=== PATIENT | male | born 1960 | race African-American/Black ===

== ENCOUNTER 2017-01-08 12:16 | Emergency (ER) | payer MEDICAID ==
[~2017-01-08] VITALS: Ht 180.3 cm; Wt 79.4 kg
[~2017-01-08 12:16] MED LIST: ALBUTEROL SULF8.5 GM INH; AZITHROMYCIN250 MG ORAL; BACTRIM DS TAB1 EAC1 ORAL; CIPRO500 MG PO; IBUPROFEN600 MG ORAL; NAPROXEN500 M2 ORAL; NORCO 5-325 TA1 EACH ORAL; NORVIR100 MG ORAL; REYATAZ150 MG ORAL; TRUVADA 200 MG1 EAC1 ORAL; ZITHROMAX250 MG ORAL; [UNRECOGNIZED DRUG - OTHER]
[2017-01-08] MEDS ORDERED: triumeq PO (12:44)
[2017-01-08 13:57] LABS: APPEARANCE,URINE CLEAR; KETONES,URINE 1+ (NEGATIVE); LEUKOCYTE ESTERASE ,URINE 1+ (NEGATIVE); NITRITE,URINE NEGATIVE (NEGATIVE); PH,URINE 6.5 (4.5-8.0); PROTEIN,URINE 1+ (NEGATIVE); UROBILINOGEN,URINE 1 MG/DL (0.0-1.0)
[2017-01-08 14:13] LABS: BACTERIA,URINE FEW /HPF; MUCUS,URINE MODERATE /LPF (NONE/OCC); RBC,URINE 0-2 /HPF (0 - 0); SQUAMOUS EPITHELIAL CELL,UR OCCASIONAL /LPF (NONE/OCC)
--- NOTE | 2017-01-08 14:26 | Emergency Room Report ---
History of Present Illness General Chief Complaint: Male Urogenital Problems Source: Patient Present Illness HPI 56 YO Male Pt. presents to the ED c/o Dysuria x 3 days . he denies nausea, vomiting, fevers chills or low back pain. Patient reports recent unprotected intercourse with a newcomer. Patient denies penile lesions or penile discharge. Patient denies swollen or tender lymph nodes in the groin. he denies hesitancy, frequency or hematuria. Denies CP, Palpitations, LOC, AMS, dizziness, Changes in Vision, Sensation, paresthesias, or a sudden severe headache. Allergies: Uncoded Allergies: abacaver (Allergy, Severe, Anaphylaxis, 11/07/13) vakata (Allergy, Severe, rash, 06/29/13) Patient History Past Medical History: see triage record Past Surgical History: none Pertinent Family History: none Immunizations: UTD Reviewed Nursing Documentation: PMH: Agreed, PSxH: Agreed Nursing Documentation-PMH Hx Diabetes: Yes - pre Review of Systems All Other Systems: negative except mentioned in HPI Physical Exam Vital Signs Date Time Temp Pulse Resp B/P Pulse Ox O2 Delivery O2 Flow Rate FiO2 01/08/17 12:36 98.2 62 16 123/70 99 Room Air Sp02 EP Interpretation: reviewed, normal General Appearance: no apparent distress, alert, GCS 15, non-toxic Head: normocephalic, atraumatic Eyes: bilateral eye PERRL, bilateral eye normal inspection ENT: hearing grossly normal, normal pharynx, no angioedema, normal voice Neck: full range of motion, supple/symm/no masses Respiratory: chest non-tender, lungs clear, normal breath sounds, speaking full sentences Cardiovascular #1: regular rate, rhythm, no edema Gastrointestinal: normal bowel sounds, non tender, soft, no guarding, no rebound Rectal: deferred Genitourinary: normal inspection, no CVA tenderness, penis normal, other - no obvious d/c noted. Musculoskeletal: back normal, gait/station normal, normal range of motion, non- tender, no calf tenderness Neurologic: alert, oriented x3, responsive, motor strength/tone normal, sensory intact, speech normal Psychiatric: judgement/insight normal, memory normal, mood/affect normal, no suicidal/homicidal ideation Skin: normal color, no rash, warm/dry, well hydrated, other - no lesions noted Lymphatic: no adenopathy Medical Decision Making PA Attestation Dr. Gomes is my supervising Physician whom patient management has been discussed with. Diagnostic Impression: Primary Impression: Urethritis ER Course Pt. presents to the ED c/o Dysuria x 3 days Ddx considered but are not limited to UTi , STI, G & C, trichomonas, Urethritis. Vital signs: are WNL, pt. is afebrile H&PE are most consistent with urethritis will treat to cover STI. 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 ORDERS: -UA: see labs attached. ED INTERVENTIONS: -250mg Rocephin IM DISCHARGE: At this time pt. is stable for d/c to home. Will provide printed patient care instructions, and any necessary prescriptions. Care plan and follow up instructions have been discussed with the patient prior to discharge. Labs Test 01/08/17 13:34 Urine Color Yellow Urine Appearance Clear Urine pH 6.5 (4.5-8.0) Urine Specific [place] 1.015 (1.005-1.035) Urine Protein 1+ (NEGATIVE) Urine Glucose (UA) Negative (NEGATIVE) Urine Ketones 1+ (NEGATIVE) Urine Occult Blood Negative (NEGATIVE) Urine Nitrite Negative (NEGATIVE) Urine Bilirubin Negative (NEGATIVE) Urine Urobilinogen 1 MG/DL (0.0-1.0) Urine Leukocyte Esterase 1+ (NEGATIVE) Urine RBC 0-2 /HPF (0 - 0) Urine WBC 2-4 /HPF (0 - 0) Urine Squamous Epithelial Cells Occasional /LPF Urine Bacteria Few /HPF (NONE) Urine Mucus Moderate /LPF (NONE/OCC) Last Vital Signs Date Time Temp Pulse Resp B/P Pulse Ox O2 Delivery O2 Flow Rate FiO2 01/08/17 12:36 98.2 62 16 123/70 99 Room Air Disposition: HOME, SELF-CARE Condition: Stable Scripts Phenazopyridine Hcl* (PYRIDIUM*) 200 Mg Tablet 200 MG ORAL THREE TIMES A DAY, #14 TAB 0 Refills Prov: Suzanne Harris P.A. 01/08/17 Doxycycline Hyclate* (VIBRAMYCIN*) 100 Mg Capsule 100 MG ORAL EVERY 12 HOURS for 7 Days, #14 CAP 0 Refills Prov: Suzanne Harris P.A. 01/08/17 Referrals: NON PHYSICIAN (PCP) Patient Instructions: Urethritis, Adult Additional Instructions: Take medications as directed. Follow up with PCP in 3-5 days Return sooner to ED if new symptoms occur, or current symptoms become worse. Suzanne Harris Jan 08, 2017 14:26
[2017-01-08] MEDS ORDERED: PHENAZOPYRIDIN200 MG ORAL (14:27)
[2017-01-08] MEDS ORDERED: VIBRAMYCIN100 MG ORAL (14:27)
[2017-01-08] MEDS ORDERED: Lidocaine 1% Plain 30 ml INJ ONE (14:50)
[2017-01-08] MEDS ORDERED: Lidocaine 1% MPF 10mg/ml 5ml ONE (14:51)
[2017-01-08 15:07] VITALS: BP 113/75
== END 2017-01-08 15:07 | disposition home or self-care (01) ==
LOC: EMR 13:00
DX: N34.2 Other urethritis (principal); R73.03 Prediabetes
CPT/HCPCS: 81003; 96372; 99284; J0696; J2001

== ENCOUNTER 2017-02-23 00:36 | Emergency (ER) | payer MEDICAID ==
[~2017-02-23] VITALS: Ht 180.3 cm; Wt 79.4 kg
[~2017-02-23 00:36] MED LIST changes: +PHENAZOPYRIDIN200 MG ORAL; +VIBRAMYCIN100 MG ORAL; +triumeq PO
[2017-02-23 00:50] VITALS: BP 121/73
[2017-02-23] MEDS ORDERED: Azithromycin 250mg tab ORAL ONE (01:00)
[2017-02-23] MEDS ORDERED: Lidocaine 1% MPF 10mg/ml 5ml ONE (01:01)
--- NOTE | 2017-02-23 01:19 | Emergency Room Report ---
History of Present Illness General Chief Complaint: Sore Throat Source: Patient Present Illness HPI Is a 56-year-old male with a history of HIV. He presents with chief complaint of sore throat occurred 2 days ago. This occurred after having unprotected oral sex. Denies any discharge. Denies any fever chills denies any other complaint. Worse with swallowing. Allergies: Uncoded Allergies: abacaver (Allergy, Severe, Anaphylaxis, 11/07/13) vakata (Allergy, Severe, rash, 06/29/13) Patient History Past Medical History: see triage record, old chart reviewed, HIV Past Surgical History: none Pertinent Family History: none Social History: Denies: smoking Immunizations: other Reviewed Nursing Documentation: PMH: Agreed, PSxH: Agreed Nursing Documentation-PMH Hx Diabetes: Yes - pre Review of Systems Eye: Denies: blurred vision, eye pain ENT: Denies: ear pain, nose congestion, throat swelling Respiratory: Denies: cough, shortness of breath Cardiovascular: Denies: chest pain, palpitations Gastrointestinal: Denies: abdominal pain, diarrhea, nausea, vomiting Musculoskeletal: Denies: back pain, joint pain Skin: Denies: rash Neurological: Denies: headache, numbness Endocrine: Denies: increased thirst, increased urine Hematologic/Lymphatic: Denies: easy bruising All Other Systems: negative except mentioned in HPI Physical Exam Vital Signs Date Time Temp Pulse Resp B/P Pulse Ox O2 Delivery O2 Flow Rate FiO2 02/23/17 00:47 98.1 66 18 121/73 97 Room Air vitals normal Sp02 EP Interpretation: reviewed, normal General Appearance: well appearing, no apparent distress, alert Head: normocephalic, atraumatic Eyes: bilateral eye EOMI, bilateral eye PERRL ENT: hearing grossly normal, normal pharynx Neck: full range of motion, supple, no meningismus Respiratory: chest non-tender, lungs clear, normal breath sounds Cardiovascular #1: regular rate, rhythm, no murmur Gastrointestinal: normal bowel sounds, non tender, no mass, no organomegaly, no bruit, non-distended Musculoskeletal: back normal, gait/station normal, normal range of motion Psychiatric: mood/affect normal Skin: warm/dry Medical Decision Making Diagnostic Impression: Primary Impression: Pharyngitis, acute Qualified Codes: J02.9 - Acute pharyngitis, unspecified ER Course Patient with pharyngitis. Most likely viral. Could be Chlamydia or gonorrhea. He looks well. We'll discharge home. No evidence of peritonsillar abscess or retropharyngeal abscess. Last Vital Signs Date Time Temp Pulse Resp B/P Pulse Ox O2 Delivery O2 Flow Rate FiO2 02/23/17 00:47 98.1 66 18 121/73 97 Room Air Status: improved Disposition: HOME, SELF-CARE Condition: Stable Patient Instructions: Sore Throat Additional Instructions: Followup with your Dr. in 7 days. Return if symptom worsen. MELA PAL M.D. Feb 23, 2017 01:19
[2017-02-23 01:28] VITALS: BP 121/73
== END 2017-02-23 01:28 | disposition home or self-care (01) ==
LOC: EMR 01:15
DX: J02.9 Acute pharyngitis, unspecified (principal)
CPT/HCPCS: 96372; 99283; J0696; Q0144

== ENCOUNTER 2017-04-02 09:57 | Emergency (ER) | payer MEDICAID ==
[~2017-04-02] VITALS: Ht 182.9 cm; Wt 83.9 kg
[2017-04-02 10:09] VITALS: BP 130/81
[2017-04-02 10:51] LABS: APPEARANCE,URINE CLEAR; KETONES,URINE NEGATIVE (NEGATIVE); LEUKOCYTE ESTERASE ,URINE 1+ (NEGATIVE); NITRITE,URINE NEGATIVE (NEGATIVE); PH,URINE 5 (4.5-8.0); PROTEIN,URINE NEGATIVE (NEGATIVE); UROBILINOGEN,URINE NORMAL MG/DL (0.0-1.0)
[2017-04-02 10:55] LABS: BACTERIA,URINE FEW /HPF; RBC,URINE 0-2 /HPF (0 - 0); SQUAMOUS EPITHELIAL CELL,UR OCCASIONAL /LPF (NONE/OCC)
[2017-04-02 11:01] LABS: MUCUS,URINE FEW /LPF (NONE/OCC)
[2017-04-02] MEDS ORDERED: VIBRAMYCIN100 MG ORAL (11:06)
--- NOTE | 2017-04-02 11:06 | Emergency Room Report ---
History of Present Illness General Chief Complaint: Male Urogenital Problems Source: Patient Present Illness HPI Patient presents with itching discharge which is clear after having unprotected sex. No fevers. No lymphadenopathy. No dysuria or hematuria. Reports pain to RN 7/10, but denies pain to me. Patient is HIV +. On antivirals. No NVD, sore throat, cough, chest pain, anxiety, rashes. Allergies: Coded Allergies: ABACAVIR (Verified Allergy, Severe, Anaphylaxis, 04/02/17) Patient History Past Medical History: see triage record, HIV Social History: Denies: smoking Social History Narrative at home Reviewed Nursing Documentation: PMH: Agreed, PSxH: Agreed Nursing Documentation-PMH Past Medical History: No History, Except For Hx Diabetes: Yes - pre Review of Systems All Other Systems: negative except mentioned in HPI Physical Exam Vital Signs Date Time Temp Pulse Resp B/P Pulse Ox O2 Delivery O2 Flow Rate FiO2 04/02/17 10:01 97.9 69 18 130/81 98 Room Air Sp02 EP Interpretation: reviewed, normal General Appearance: well appearing, no apparent distress, GCS 15 Head: normocephalic, atraumatic Eyes: bilateral eye PERRL, bilateral eye normal inspection ENT: hearing grossly normal, normal voice, moist mucus membranes Neck: full range of motion, supple Respiratory: no respiratory distress, speaking full sentences Genitourinary: normal inspection, penis normal, scrotum normal, other - circumcized, no d/c Musculoskeletal: no calf tenderness Neurologic: alert, normal gait Psychiatric: mood/affect normal Skin: no rash Lymphatic: normal inspection Medical Decision Making Diagnostic Impression: Primary Impression: Dysuria Additional Impressions: Possible exposure to STD HIV (human immunodeficiency virus infection) ER Course Patient with d/c after unprotected sex. Ddx: GC, chlamydia, other STD. Will check UA and send STD labs. Will treat with rocephin and doxy. Patient stable for outpatient observation and treatment. Advised patient of need for protection, not only for self but for partners. Laboratory Tests Test 04/02/17 10:07 Urine Color Yellow Urine Appearance Clear Urine pH 5 (4.5-8.0) Urine Specific [place] 1.020 (1.005-1.035) Urine Protein Negative (NEGATIVE) Urine Glucose (UA) Negative (NEGATIVE) Urine Ketones Negative (NEGATIVE) Urine Occult Blood Negative (NEGATIVE) Urine Nitrite Negative (NEGATIVE) Urine Bilirubin Negative (NEGATIVE) Urine Urobilinogen Normal MG/DL (0.0-1.0) Urine Leukocyte Esterase 1+ (NEGATIVE) H Urine RBC 0-2 /HPF (0 - 0) H Urine WBC 2-4 /HPF (0 - 0) Urine Squamous Epithelial Cells Occasional /LPF Urine Transitional Epithelial Cells /LPF (NONE) Urine Bacteria Few /HPF (NONE) Urine Mucus Few /LPF (NONE/OCC) H Chlamydia trachomatis RNA Pending Neisseria gonorrhoeae RNA Pending Last Vital Signs Date Time Temp Pulse Resp B/P Pulse Ox O2 Delivery O2 Flow Rate FiO2 04/02/17 11:11 97.9 69 18 130/81 98 Room Air Status: improved Disposition: HOME, SELF-CARE Condition: Improved Scripts Doxycycline Hyclate* (VIBRAMYCIN*) 100 Mg Capsule 100 MG ORAL EVERY 12 HOURS, #14 CAP 0 Refills Prov: Tomas Serna M.D. 04/02/17 Referrals: NOT CHOSEN MONALISA/,REFERRING (PCP) Tomas Serna M.D. April 02, 2017 11:06
[2017-04-02 11:11] VITALS: BP 130/81
== END 2017-04-02 11:13 | disposition home or self-care (01) ==
LOC: EMR 10:25
DX: R30.0 Dysuria (principal); Z20.2 Contact with and (suspected) exposure to infections with a predominantly sexual mode of transmission; Z21 Asymptomatic human immunodeficiency virus [HIV] infection status; R73.03 Prediabetes
CPT/HCPCS: 81003; 87491; 87590; 96372; 99283; J0696

== ENCOUNTER 2017-05-20 11:52 | Emergency (ER) | payer MEDICAID ==
[~2017-05-20] VITALS: Ht 180.3 cm; Wt 81.6 kg
--- NOTE | 2017-05-20 12:28 | Emergency Room Report ---
History of Present Illness General Chief Complaint: Flu Like Symptoms Source: Patient Present Illness HPI 56 YO Male presents to the ED c/o penile itching intermittently x 2 days s/p unprotected intercourse with new partner. patient also reports 4/10 in severity sore throat described as irritated/scratching sensation denies fevers, chills, joint pain, nausea, vomiting, abdominal pain, rashes, swollen palpable lymph nodes. denies dysuria, penile d/c, hematuria or penile lesions. Patient denies nasal congestion. Reports intermittent sneezing. Pt reports ill contact with URI symptoms yesterday evening. Denies CP, Palpitations, LOC, AMS, dizziness, Changes in Vision, Sensation, paresthesias, or a sudden severe headache. Allergies: Coded Allergies: ABACAVIR (Verified Allergy, Severe, Anaphylaxis, 04/02/17) Patient History Past Medical History: see triage record Past Surgical History: none Pertinent Family History: none Immunizations: UTD Reviewed Nursing Documentation: PMH: Agreed, PSxH: Agreed Nursing Documentation-PMH Hx Diabetes: Yes - pre Review of Systems All Other Systems: negative except mentioned in HPI Physical Exam Vital Signs Date Time Temp Pulse Resp B/P Pulse Ox O2 Delivery O2 Flow Rate FiO2 05/20/17 11:59 97.9 64 16 112/70 98 Room Air Sp02 EP Interpretation: reviewed, normal General Appearance: no apparent distress, alert, GCS 15, non-toxic Head: normocephalic, atraumatic Eyes: bilateral eye PERRL, bilateral eye normal inspection ENT: hearing grossly normal, normal pharynx, no angioedema, normal voice, TMs + canals normal, uvula midline, moist mucus membranes, other - no appreciable erythema of the throat noted, no tonsillar swelling. Neck: full range of motion, supple/symm/no masses Respiratory: lungs clear, normal breath sounds, speaking full sentences Cardiovascular #1: regular rate, rhythm, no edema Genitourinary: normal inspection, no CVA tenderness, other - no lesions, rashes or d/c noted, no LAD, -- Kalani RN was chapperone Musculoskeletal: back normal, gait/station normal, normal range of motion, non- tender Neurologic: alert, oriented x3, responsive, motor strength/tone normal, sensory intact, speech normal Psychiatric: judgement/insight normal, memory normal, mood/affect normal Reflexes: 4+ bicep (R), 4+ bicep (L), 4+ tricep (R), 4+ tricep (L), 4+ knee (R) , 4+ knee (L) Skin: normal color, no rash, warm/dry, well hydrated Lymphatic: no adenopathy Medical Decision Making PA Attestation Dr. Serna is my supervising Physician whom patient management has been discussed with. Diagnostic Impression: Primary Impression: Urethritis Additional Impressions: Possible exposure to STD Sore throat ER Course 56 YO Male presents to the ED c/o penile itching intermittently x 2 days s/p unprotected intercourse with new partner. patient also reports 4/10 in severity sore throat described as irritated/scratching sensation denies fevers, chills, joint pain, nausea, vomiting, abdominal pain, rashes, swollen palpable lymph nodes. denies dysuria, penile d/c, hematuria or penile lesions. Patient denies nasal congestion. Reports intermittent sneezing. Pt reports ill contact with URI symptoms yesterday evening. Ddx considered but are not limited to UTi , STI, G & C, trichomonas, Urethritis , LGV, herpes Vital signs: are WNL, pt. is afebrile H&PE are most consistent with Urethritis will treat prophylactically while awaiting urine G & C culture results. ORDERS: -G & C Urine: Pending ED INTERVENTIONS: -250mg Rocephin IM DISCHARGE: At this time pt. is stable for d/c to home. Will provide printed patient care instructions, and any necessary prescriptions. Care plan and follow up instructions have been discussed with the patient prior to discharge. Labs Test 05/20/17 12:10 Last Vital Signs Date Time Temp Pulse Resp B/P Pulse Ox O2 Delivery O2 Flow Rate FiO2 05/20/17 11:59 97.9 64 16 112/70 98 Room Air Disposition: HOME, SELF-CARE Condition: Stable Scripts Doxycycline Hyclate* (VIBRAMYCIN*) 100 Mg Capsule 100 MG ORAL EVERY 12 HOURS for 7 Days, #14 CAP 0 Refills Prov: Suzanne Harris P.A. 05/20/17 Cetirizine Hcl* (ZYRTEC*) 10 Mg Tablet 10 MG ORAL DAILY for 10 Days, #30 TAB 0 Refills Prov: Suzanne Harris P.A. 05/20/17 Patient Instructions: Urethritis, Adult Additional Instructions: Take medications as directed. Follow up with PCP in 3-5 days Return sooner to ED if new symptoms occur, or current symptoms become worse. - Please note that this Emergency Department Report was dictated using [employer] driver technology software, occasionally this can lead to erroneous entry secondary to interpretation by the dictation equipment. Suzanne Harris May 20, 2017 12:28
[2017-05-20] MEDS ORDERED: ZYRTEC10 MG ORAL (12:29)
[2017-05-20] MEDS ORDERED: VIBRAMYCIN100 MG ORAL (12:29)
[2017-05-20 12:40] VITALS: BP 112/70
[2017-05-20 13:04] VITALS: BP 112/70
== END 2017-05-20 13:07 | disposition home or self-care (01) ==
LOC: EMR 12:45
DX: N34.2 Other urethritis (principal); J02.9 Acute pharyngitis, unspecified
CPT/HCPCS: 87491; 87590; 96372; 99284; J0696

== ENCOUNTER 2017-11-13 18:46 | Emergency (ER) | payer MEDICAID ==
[~2017-11-13] VITALS: Ht 180.3 cm; Wt 81.6 kg
[~2017-11-13 18:46] MED LIST changes: +ZYRTEC10 MG ORAL
[2017-11-13] MEDS ORDERED: Lidocaine 1% MPF 10mg/ml 5ml INJ ONE (19:15)
[2017-11-13] MEDS ORDERED: Azithromycin 250mg tab ORAL ONE (19:15)
--- NOTE | 2017-11-13 19:21 | Emergency Room Report ---
History of Present Illness General Chief Complaint: Male Urogenital Problems Source: Patient, Medical Record Present Illness HPI 57 y/o male c/o dysuria since this morning. Patient states that he had sex with a new sexual partner and a few days later started having burning sensation in his urethra. States that her pain is constant and is worse when he urinates. Patient states that there is no modifying factors outside of the urination. Patient states that they are taking medicine for his symptoms. Patient denies any penile discharge, scrotal pain, abdominal pain, pelvic pressure, flank pain, hematuria, fever, rashes or flu-like sxs. Allergies: Coded Allergies: ABACAVIR (Verified Allergy, Severe, Anaphylaxis, 04/02/17) Patient History Past Medical History: see triage record Past Surgical History: none Pertinent Family History: none Reviewed Nursing Documentation: PMH: Agreed, PSxH: Agreed Nursing Documentation-PMH Past Medical History: No History, Except For Hx Diabetes: Yes - pre Review of Systems All Other Systems: negative except mentioned in HPI Physical Exam Vital Signs Date Time Temp Pulse Resp B/P (MAP) Pulse Ox O2 Delivery O2 Flow Rate FiO2 11/13/17 18:56 97.9 73 18 132/81 100 Room Air Sp02 EP Interpretation: reviewed, normal General Appearance: no apparent distress, alert, GCS 15, non-toxic Head: normocephalic, atraumatic Eyes: bilateral eye normal inspection, bilateral eye PERRL ENT: hearing grossly normal, normal pharynx, no angioedema, normal voice Respiratory: chest non-tender, lungs clear, normal breath sounds, speaking full sentences Cardiovascular #1: regular rate, rhythm, no edema Gastrointestinal: non tender, soft Genitourinary: normal inspection, no CVA tenderness, penis normal, scrotum normal Musculoskeletal: digits/nails normal, gait/station normal Neurologic: alert, oriented x3, responsive, motor strength/tone normal, sensory intact, speech normal Skin: normal color, no rash, warm/dry, well hydrated Lymphatic: no adenopathy Medical Decision Making PA Attestation Dr. Tatum my supervising physician with whom patient management has been discussed with. Diagnostic Impression: Primary Impression: Urethritis Additional Impression: Urinary tract infection Qualified Codes: N39.0 - Urinary tract infection, site not specified ER Course Pt. presents to the ED c/o burning urinary pain Ddx considered but are not limited to UTI, Balanitis, STI, Kidney Stone, Pyelonephritis Vital signs: are WNL, pt. is afebrile H&PE are most consistent with Urethritis / UTI ORDERS: UA w/. reflex ED INTERVENTIONS: 250 mg rocephin, 1g azithromycin. DISCHARGE: At this time pt. is stable for d/c to home. Will provide printed patient care instructions, and any necessary prescriptions. Care plan and follow up instructions have been discussed with the patient prior to discharge. Laboratory Tests Test 11/13/17 19:00 Urine Color Yellow Urine Appearance Clear Urine pH 6.5 (4.5-8.0) Urine Specific [place] 1.010 (1.005-1.035) Urine Protein Negative (NEGATIVE) Urine Glucose (UA) 4+ (NEGATIVE) H Urine Ketones Negative (NEGATIVE) Urine Occult Blood Negative (NEGATIVE) Urine Nitrite Negative (NEGATIVE) Urine Bilirubin Negative (NEGATIVE) Urine Urobilinogen Normal MG/DL (0.0-1.0) Urine Leukocyte Esterase 1+ (NEGATIVE) H Urine RBC 0-2 /HPF (0 - 0) H Urine WBC 2-4 /HPF (0 - 0) Urine Squamous Epithelial Cells None /LPF (NONE/OCC) Urine Bacteria Few /HPF (NONE) Last Vital Signs Date Time Temp Pulse Resp B/P (MAP) Pulse Ox O2 Delivery O2 Flow Rate FiO2 11/13/17 18:56 97.9 73 18 132/81 100 Room Air Disposition: HOME, SELF-CARE Condition: Stable Scripts Cephalexin* (KEFLEX*) 500 Mg Capsule 500 MG ORAL EVERY 12 HOURS, #14 CAP 0 Refills Prov: ANGELES FLAHERTY P.A. 11/13/17 Referrals: NON PHYSICIAN (PCP) Patient Instructions: Urethritis, Adult Additional Instructions: Take medication as directed. Patient advised to follow up with community clinic for formal STD screening. In general, watch out for any genital itching, burning , sores, or discharge. But be aware that many STIs do not cause any symptoms. The best way to know for sure if you have an STI is to be screened. If you have an STI, you will need treatment. The right treatment will depend on the type of STI you have. If you do have an infection, you might need to tell the people you could have infected. There is no surefire way to prevent all STIs, but there are things you can do to reduce your chances of catching one. The most important thing you can do is to wear a condom every time you have sex. Both male and female condoms can protect against STIs. But be aware that male condoms made out of "natural materials," such as sheep intestine, do NOT protect against STIs. If you are 26 years old or younger, you can get a vaccine to protect against HPV, the virus that causes genital warts. If you do not have hepatitis A or B and have not already gotten the vaccine for hepatitis A or B, you can get those vaccines, too. If your partner has herpes, he or she can reduce the chances of infecting you by taking a medicine called valacyclovir. If you are at very high risk of catching HIV, you might be able to take a pill every day to reduce the chances that you will get HIV. This is an option only for very few at-risk people. ANGELES FLAHERTY Nov 13, 2017 19:21
[2017-11-13 19:24] LABS: APPEARANCE,URINE CLEAR; KETONES,URINE NEGATIVE (NEGATIVE); LEUKOCYTE ESTERASE ,URINE 1+ (NEGATIVE); NITRITE,URINE NEGATIVE (NEGATIVE); PH,URINE 6.5 (4.5-8.0); PROTEIN,URINE NEGATIVE (NEGATIVE); UROBILINOGEN,URINE NORMAL MG/DL (0.0-1.0)
[2017-11-13 19:33] VITALS: BP 132/81
[2017-11-13 19:36] LABS: BACTERIA,URINE FEW /HPF; RBC,URINE 0-2 /HPF (0 - 0)
[2017-11-13] MEDS ORDERED: CEPHALEXIN500 MG ORAL (19:41)
== END 2017-11-13 19:33 | disposition home or self-care (01) ==
LOC: EMR 19:13
DX: N34.2 Other urethritis (principal); N39.0 Urinary tract infection, site not specified
CPT/HCPCS: 81003; 96372; 99284; J0696; Q0144

== ENCOUNTER 2018-01-22 19:25 | Emergency (ER) | payer MEDICAID ==
[~2018-01-22] VITALS: Ht 180.3 cm; Wt 81.6 kg
[~2018-01-22 19:25] MED LIST changes: +CEPHALEXIN500 MG ORAL
[2018-01-22 19:45] VITALS: BP 121/75
[2018-01-22] MEDS ORDERED: Lidocaine 1% MPF 10mg/ml 5ml INJ ONE (20:00)
[2018-01-22 20:18] LABS: APPEARANCE,URINE CLEAR; BILIRUBIN, URINE NEGATIVE (NEGATIVE); GLUCOSE, URINE (UA) 3+ (NEGATIVE); KETONES,URINE NEGATIVE (NEGATIVE); LEUKOCYTE ESTERASE ,URINE NEGATIVE (NEGATIVE); NITRITE,URINE NEGATIVE (NEGATIVE); PH,URINE 6 (4.5-8.0); UROBILINOGEN,URINE 4 MG/DL (0.0-1.0)
[2018-01-22 20:19] LABS: COLOR,URINE YELLOW
[2018-01-22 20:20] LABS: PROTEIN,URINE NEGATIVE (NEGATIVE)
--- NOTE | 2018-01-22 20:43 | Emergency Room Report ---
History of Present Illness General Chief Complaint: Male Urogenital Problems Source: Patient Present Illness HPI Patient presents with irritation at tip of penis. 2 days. Not painful. No discharge. No dysuria. Sig other with other contacts. Variable use of condom. Has been treated for urethritis in the past. Denies fevers, lymphadenopathy, joint pain, eye d/c, change in bowels, chest pain, abdominal pain, testicular pain, rectal pain. Has diabetes and not taking metformin for some time. Allergies: Coded Allergies: ABACAVIR (Verified Allergy, Severe, Anaphylaxis, 04/02/17) Patient History Past Medical History: see triage record Social History: Denies: smoking Social History Narrative in relationship Reviewed Nursing Documentation: PMH: Agreed, PSxH: Agreed Nursing Documentation-PMH Hx Diabetes: Yes - pre Review of Systems All Other Systems: negative except mentioned in HPI Physical Exam Vital Signs Date Time Temp Pulse Resp B/P (MAP) Pulse Ox O2 Delivery O2 Flow Rate FiO2 01/22/18 19:34 97.3 72 18 121/75 99 Room Air 97.3 General Appearance: well appearing, no apparent distress Head: normocephalic, atraumatic Eyes: bilateral eye normal inspection, bilateral eye PERRL ENT: hearing grossly normal, normal voice, moist mucus membranes Neck: full range of motion, supple Respiratory: no respiratory distress, speaking full sentences Gastrointestinal: normal inspection, scaphoid Genitourinary: normal inspection, other - circumcised, top of urethra area concerned, normal, no d/c Musculoskeletal: back normal, digits/nails normal, non-tender Neurologic: alert, normal gait, grossly normal Psychiatric: mood/affect normal Skin: no rash Lymphatic: no adenopathy Medical Decision Making Diagnostic Impression: Primary Impression: Dysuria Additional Impression: Hyperglycemia ER Course Patient with irritation tip of penis and question of possible STD encounter. Eval with UA and send out for Chlamydia and GC. Exam fairly unremarkable. Treatment with Rocephin and Doxy. Told to use protection and follow up with his MD. Patient stable for outpatient observation and treatment. Laboratory Tests Test 01/22/18 19:45 Urine Color Yellow Urine Appearance Clear Urine pH 6 (4.5-8.0) Urine Specific [place] 1.020 (1.005-1.035) Urine Protein Negative (NEGATIVE) Urine Glucose (UA) 3+ (NEGATIVE) H Urine Ketones Negative (NEGATIVE) Urine Occult Blood Negative (NEGATIVE) Urine Nitrite Negative (NEGATIVE) Urine Bilirubin Negative (NEGATIVE) Urine Urobilinogen 4 MG/DL (0.0-1.0) H Urine Leukocyte Esterase Negative (NEGATIVE) Chlamydia trachomatis RNA Pending Neisseria gonorrhoeae RNA Pending Last Vital Signs Date Time Temp Pulse Resp B/P (MAP) Pulse Ox O2 Delivery O2 Flow Rate FiO2 01/22/18 20:55 97.3 18 121/75 99 Room Air 97.3 01/22/18 19:34 72 Status: improved Disposition: HOME, SELF-CARE Condition: Improved Scripts Doxycycline Hyclate* (VIBRAMYCIN*) 100 Mg Capsule 100 MG ORAL EVERY 12 HOURS, #14 CAP 0 Refills Prov: Tomas Serna M.D. 01/22/18 Referrals: NON PHYSICIAN (PCP) Tomas Serna M.D. Jan 22, 2018 20:43
[2018-01-22] MEDS ORDERED: VIBRAMYCIN100 MG ORAL (20:45)
[2018-01-22 20:55] VITALS: BP 121/75
== END 2018-01-22 20:55 | disposition home or self-care (01) ==
LOC: EMR 19:59
DX: R30.0 Dysuria (principal); E11.65 Type 2 diabetes mellitus with hyperglycemia; N48.89 Other specified disorders of penis
CPT/HCPCS: 81003; 82962; 87491; 87590; 96372; 99284; J0696

== ENCOUNTER 2018-02-22 13:09 | Emergency (ER) | payer MEDICAID ==
[~2018-02-22] VITALS: Ht 182.9 cm; Wt 81.6 kg
[2018-02-22 13:39] VITALS: BP 114/64
[2018-02-22] MEDS ORDERED: Metoclopramide 10mg/2ml Inj IVP ONE (14:00)
[2018-02-22] MEDS ORDERED: Ketorolac 30mg Inj IV ONE (14:00)
[2018-02-22] MEDS ORDERED: DiphenhydrAMINE 50mg/ml Inj IVP ONE (14:00)
--- NOTE | 2018-02-22 14:06 | Emergency Room Report ---
History of Present Illness General Chief Complaint: Back Pain-No Injury Source: Patient Present Illness HPI The patient presents with right-sided throbbing headache that started yesterday. Took some ibuprofen and pain was a little better last night but then came back. Feels nausea but no has no vomiting. He states the pain is 8-9 /10 and constant now. He denies any weakness or tingling. He also has some flank pain and has had some cramps in his calves yesterday. The patient is had headaches like this before and terms them "migraine". 6 or 7 years ago he had a concussion and has had occasional headaches with a postconcussion syndrome. He states a CT was done at that time and was "normal". The patient denies any fevers, change in vision although he notes that his eyes at different to him. No chest pain, cough, shortness of breath, palpitations, dysuria. The patient's been seen here before for urethritis, but denies these complaints at this time. He is HIV positive and is on antivirals and states CD4 and viral load have been constant (though is questioning if this is so now). "Prediabetic" Allergies: Coded Allergies: ABACAVIR (Verified Allergy, Severe, Anaphylaxis, 04/02/17) Patient History Past Medical History: see triage record, HIV Social History: Denies: smoking - Prior smoker, alcohol use, drug use Social History Narrative Lives with girlfriend. He drove himself here Reviewed Nursing Documentation: PMH: Agreed; PSxH: Agreed Nursing Documentation-PMH Past Medical History: No History, Except For Hx Diabetes: Yes - Pre Diabetic Review of Systems All Other Systems: negative except mentioned in HPI Physical Exam Vital Signs Date Time Temp Pulse Resp B/P (MAP) Pulse Ox O2 Delivery O2 Flow Rate FiO2 02/22/18 13:22 98.1 72 22 114/64 98 Room Air 98.1 Sp02 EP Interpretation: reviewed, normal General Appearance: well appearing, no apparent distress, GCS 15 Head: normocephalic Eyes: bilateral eye PERRL, bilateral eye EOMI - Slight disconjugate gaze with medial rectus weakness, bilateral eye Scleral Injection ENT: moist mucus membranes Neck: supple, no meningismus, no bony tend, tender - minimally laterally Respiratory: lungs clear, normal breath sounds Cardiovascular #1: regular rate, rhythm Cardiovascular #2: 2+ radial (R) Gastrointestinal: normal inspection, normal bowel sounds, non tender, no mass, non-distended Genitourinary: no CVA tenderness Musculoskeletal: gait/station normal, normal range of motion, tender - lumbar muscles Neurologic: alert, oriented x3, dry wall applicator III-XII nml as tested, motor strength/tone normal, DTRs symmetric, sensory intact, cerebellar normal, normal gait, speech normal Psychiatric: mood/affect normal Skin: normal inspection, warm/dry Medical Decision Making Diagnostic Impression: Primary Impression: Headache Qualified Codes: R51 - Headache Additional Impressions: Back pain Qualified Codes: M54.5 - Low back pain Muscle cramps ER Course The patient presents with right-sided throbbing headache since yesterday. This is not the worst headache of his life. He turns it a migraine. He has had this type of headache after having a concussion 6 or 7 years ago and had a normal CAT scan done at that time. Exam is nonfocal. The patient will be treated with IV hydration, Reglan, Benadryl and Toradol. In addition to that the patient will have CBC and CMP done and a urinalysis as he is complaining about flank pain. We'll be checking electrolytes because of the cramping in his legs. Labs normal (slightly elevated glucose and bicarb). While walking in gross he stated he felt better. Then reported to RN that he still had SINGH, but less pain. Discussed treatment plan. Patient stable for outpatient observation and treatment. Laboratory Tests Test 02/22/18 14:15 White Blood Count 5.9 K/UL (4.8-10.8) Red Blood Count 5.19 M/UL (4.70-6.10) Hemoglobin 15.6 G/DL (14.2-18.0) Hematocrit 46.3 % (42.0-52.0) Mean Corpuscular Volume 89 FL (80-99) Mean Corpuscular Hemoglobin 30.0 PG (27.0-31.0) Mean Corpuscular Hemoglobin Concent 33.6 G/DL (32.0-36.0) Red Cell Distribution Width 11.9 % (11.6-14.8) Platelet Count 241 K/UL (150-450) Mean Platelet Volume 7.9 FL (6.5-10.1) Neutrophils (%) (Auto) 62.3 % (45.0-75.0) Lymphocytes (%) (Auto) 28.0 % (20.0-45.0) Monocytes (%) (Auto) 7.2 % (1.0-10.0) Eosinophils (%) (Auto) 1.8 % (0.0-3.0) Basophils (%) (Auto) 0.7 % (0.0-2.0) Prothrombin Time 10.2 SEC (9.30-11.50) Prothrombin Time INR 1.0 (0.9-1.1) PTT 27 SEC (23-33) Urine Color Yellow Urine Appearance Clear Urine pH 6.5 (4.5-8.0) Urine Specific [place] 1.010 (1.005-1.035) Urine Protein 1+ (NEGATIVE) H Urine Glucose (UA) Negative (NEGATIVE) Urine Ketones Negative (NEGATIVE) Urine Occult Blood Negative (NEGATIVE) Urine Nitrite Negative (NEGATIVE) Urine Bilirubin Negative (NEGATIVE) Urine Urobilinogen Normal MG/DL (0.0-1.0) Urine Leukocyte Esterase 1+ (NEGATIVE) H Urine RBC 0 /HPF (0 - 0) Urine WBC 2-4 /HPF (0 - 0) Urine Squamous Epithelial Cells Occasional /LPF Urine Bacteria Occasional /HPF (NONE) Sodium Level 139 MMOL/L (136-145) Potassium Level 4.4 MMOL/L (3.5-5.1) Chloride Level 103 MMOL/L (98-107) Carbon Dioxide Level 33 MMOL/L (21-32) H Anion Gap 3 mmol/L (5-15) L Blood Urea Nitrogen 8 mg/dL (7-18) Creatinine 1.0 MG/DL (0.55-1.30) Estimate Glomerular Filtration Rate > 60 mL/min (>60) Glucose Level 155 MG/DL (74-106) H Calcium Level 9.1 MG/DL (8.5-10.1) Total Bilirubin 0.6 MG/DL (0.2-1.0) Aspartate Amino Transferase (AST) 23 U/L (15-37) Alanine Aminotransferase (ALT) 40 U/L (12-78) Alkaline Phosphatase 99 U/L (46-116) Total Creatine Kinase 225 U/L (26-308) Troponin I 0.000 ng/mL (0.000-0.056) Total Protein 9.9 G/DL (6.4-8.2) H Albumin 3.8 G/DL (3.4-5.0) Globulin 6.1 g/dL Albumin/Globulin Ratio 0.6 (1.0-2.7) L Urine Opiates Screen Negative (NEGATIVE) Urine Barbiturates Screen Negative (NEGATIVE) Phencyclidine (PCP) Screen Negative (NEGATIVE) Urine Amphetamines Screen Negative (NEGATIVE) Urine Benzodiazepines Screen Negative (NEGATIVE) Urine Cocaine Screen Negative (NEGATIVE) Urine Marijuana (THC) Screen Negative (NEGATIVE) Last Vital Signs Date Time Temp Pulse Resp B/P (MAP) Pulse Ox O2 Delivery O2 Flow Rate FiO2 02/22/18 16:39 98.1 22 122/71 98 Room Air 208.6 02/22/18 13:22 72 Status: improved Disposition: HOME, SELF-CARE Condition: Improved Scripts Ibuprofen* (MOTRIN*) 600 Mg Tablet 600 MG ORAL Q6H PRN for For Pain, #20 TAB Prov: Tomas Serna M.D. 02/22/18 Tramadol Hcl* (ULTRAM*) 50 Mg Tablet 50 MG ORAL Q6H PRN for For Pain, #6 TAB 0 Refills Prov: Tomas Serna M.D. 02/22/18 Tomas Serna M.D. Feb 22, 2018 14:06
[2018-02-22 14:25] LABS: BASOPHILS % (AUTO) 0.7 % (0.0-2.0); EOSINOPHILS % (AUTO) 1.8 % (0.0-3.0); HEMATOCRIT 46.3 % (42.0-52.0); HEMOGLOBIN 15.6 G/DL (14.2-18.0); MEAN CORPUSCULAR VOLUME 89 FL (80-99); MONOCYTES % (AUTO) 7.2 % (1.0-10.0); NEUTROPHILS % (AUTO) 62.3 % (45.0-75.0); PLATELET COUNT 241 K/UL (150-450); RED BLOOD COUNT 5.19 M/UL (4.70-6.10); RED CELL DISTRIBUTION WIDTH 11.9 % (11.6-14.8); WHITE BLOOD COUNT 5.9 K/UL (4.8-10.8)
[2018-02-22 14:26] LABS: APPEARANCE,URINE CLEAR; BILIRUBIN, URINE NEGATIVE (NEGATIVE); GLUCOSE, URINE (UA) NEGATIVE (NEGATIVE); KETONES,URINE NEGATIVE (NEGATIVE); LEUKOCYTE ESTERASE ,URINE 1+ (NEGATIVE); NITRITE,URINE NEGATIVE (NEGATIVE); PH,URINE 6.5 (4.5-8.0); PROTEIN,URINE 1+ (NEGATIVE); UROBILINOGEN,URINE NORMAL MG/DL (0.0-1.0)
[2018-02-22 14:38] LABS: COLOR,URINE YELLOW
[2018-02-22 14:39] LABS: ANION GAP 3 mmol/L (5-15); BLOOD UREA NITROGEN 8 mg/dL (7-18); CALCIUM 9.1 MG/DL (8.5-10.1); CARBON DIOXIDE 33 MMOL/L (21-32); CHLORIDE 103 MMOL/L (98-107); POTASSIUM 4.4 MMOL/L (3.5-5.1); SODIUM 139 MMOL/L (136-145)
[2018-02-22 14:44] LABS: ALANINE AMINOTRANSFERASE 40 U/L (12-78); ALBUMIN 3.8 G/DL (3.4-5.0); ALBUMIN/GLOBULIN RATIO 0.6 (1.0-2.7); ALKALINE PHOSPHATASE 99 U/L (46-116); ASPARTATE AMINO TRANSFERASE 23 U/L (15-37); BILIRUBIN,TOTAL 0.6 MG/DL (0.2-1.0); CREATINE KINASE 225 U/L (26-308)
[2018-02-22] MEDS ORDERED: IBUPROFEN600 MG ORAL (15:50)
[2018-02-22] MEDS ORDERED: TRAMADOL HCL50 MG ORAL (15:50)
[2018-02-22 16:39] VITALS: BP 122/71
== END 2018-02-22 16:39 | disposition home or self-care (01) ==
LOC: EMR 14:07
DX: R51 Headache (principal); M54.9 Dorsalgia, unspecified
CPT/HCPCS: 36415; 80053; 80307; 81003; 82550; 84484; 85025; 85610; 85730; 96374; 96375; 99284; J1200; J1885; J2765

== ENCOUNTER 2018-05-11 23:35 | Emergency (ER) | payer MEDICAID ==
[~2018-05-11] VITALS: Ht 180.3 cm; Wt 81.6 kg
[~2018-05-11 23:35] MED LIST changes: +TRAMADOL HCL50 MG ORAL
[2018-05-12 00:05] VITALS: BP 120/66
[2018-05-12] MEDS ORDERED: Lidocaine 1% MPF 10mg/ml 5ml INJ ONE (00:30)
[2018-05-12] MEDS ORDERED: Azithromycin 250mg tab ORAL ONE (00:30)
[2018-05-12 00:40] VITALS: BP 120/66
--- NOTE | 2018-05-12 05:52 | Emergency Room Report ---
History of Present Illness General Chief Complaint: Male Urogenital Problems Source: Patient Present Illness HPI 57-year-old male presents ED complaining of itchiness to his penis. Noted at the urethral meatus. Started 2 days ago. Denies any discharge. Denies any dysuria. Denies any pain. Patient states he's had a recent sexual activity which is unprotected. No other aggravating relieving factors. Denies any other associated symptoms Allergies: Coded Allergies: ABACAVIR (Verified Allergy, Severe, Anaphylaxis, 04/02/17) Patient History Past Medical History: DM, HIV Past Surgical History: none Pertinent Family History: none Social History: Denies: smoking, alcohol use, drug use Immunizations: UTD Reviewed Nursing Documentation: PMH: Agreed; PSxH: Agreed Nursing Documentation-PMH Hx Diabetes: Yes - Pre Diabetic Review of Systems All Other Systems: negative except mentioned in HPI Physical Exam Vital Signs Date Time Temp Pulse Resp B/P (MAP) Pulse Ox O2 Delivery O2 Flow Rate FiO2 05/11/18 23:47 98.3 67 18 120/66 99 Room Air 98.2 Sp02 EP Interpretation: reviewed, normal General Appearance: no apparent distress, alert, GCS 15, non-toxic Head: normocephalic Eyes: bilateral eye normal inspection, bilateral eye PERRL ENT: normal ENT inspection Neck: normal inspection Respiratory: normal inspection Cardiovascular #1: normal inspection Gastrointestinal: normal inspection Rectal: deferred Genitourinary: no CVA tenderness Musculoskeletal: back normal, gait/station normal, normal range of motion, non- tender Neurologic: alert, oriented x3, responsive, motor strength/tone normal, sensory intact, speech normal Psychiatric: judgement/insight normal, memory normal, mood/affect normal, no suicidal/homicidal ideation Skin: normal inspection Lymphatic: normal inspection Medical Decision Making Diagnostic Impression: Primary Impression: Urethritis ER Course Hospital Course 57-year-old male presents ED with itchiness to penis. h/o unprotected sex Differential diagnoses include: trichimonas, gonorrhea, chlamydia Clinical course Patient placed on stretcher. After initial history physical exam reveals a male in no acute distress. Physical exam unremarkable. No testicular pain or swelling. No noted urethral discharge We will treat him clinically for gonorrhea/Chlamydia Given azithromycin/Rocephin in ED Diagnosis - urethritis Stable and discharged home. Instructed to followup with PMD. Return to ED if symptoms recur or worsen Last Vital Signs Date Time Temp Pulse Resp B/P (MAP) Pulse Ox O2 Delivery O2 Flow Rate FiO2 05/12/18 00:40 98.2 67 18 120/66 99 Room Air 98.2 Status: improved Disposition: HOME, SELF-CARE Condition: Stable Referrals: NOT CHOSEN IPA/,REFERRING (PCP) Patient Instructions: Urethritis, Adult Kyle Tatum MD May 12, 2018 05:52
== END 2018-05-12 00:40 | disposition home or self-care (01) ==
LOC: EMR 05-12 00:19
DX: N34.2 Other urethritis (principal)
CPT/HCPCS: 96372; 99283; J0696; Q0144

== ENCOUNTER 2018-07-31 10:55 | Emergency (ER) | payer MEDICAID ==
[~2018-07-31] VITALS: Ht 180.3 cm; Wt 81.6 kg
--- NOTE | 2018-07-31 11:28 | Emergency Room Report ---
History of Present Illness General Chief Complaint: Flu Like Symptoms Source: Patient Present Illness HPI Patient presents with complaints of sore throat and body aches Denies any chest pain However he has had some URI symptoms as well right nose mild cough Denies any vomiting or diarrhea denies any back or flank pain Patient did have sexual contact about a week ago Denies any swollen lymph nodes denies any neck pain or photophobia Allergies: Coded Allergies: ABACAVIR (Verified Allergy, Severe, Anaphylaxis, 04/02/17) Patient History Past Medical History: see triage record Pertinent Family History: none Reviewed Nursing Documentation: PMH: Agreed; PSxH: Agreed Nursing Documentation-PM Past Medical History: No History, Except For Hx Diabetes: Yes - Pre Diabetic Review of Systems All Other Systems: negative except mentioned in HPI Physical Exam Vital Signs Date Time Temp Pulse Resp B/P (MAP) Pulse Ox O2 Delivery O2 Flow Rate FiO2 07/31/18 11:00 98.2 83 16 123/72 95 Room Air 98.2 Sp02 EP Interpretation: reviewed, normal General Appearance: well appearing, no apparent distress Head: normocephalic, atraumatic Eyes: bilateral eye PERRL, bilateral eye EOMI ENT: hearing grossly normal, TMs + canals normal, uvula midline, pharyngeal erythema Neck: full range of motion, supple, no meningismus, no bony tend Respiratory: lungs clear, normal breath sounds, no rhonchi, no respiratory distress, no retraction, no accessory muscle use Cardiovascular #1: normal peripheral pulses, regular rate, rhythm, no edema, no gallop, no JVD, no murmur Gastrointestinal: normal bowel sounds, non tender, soft, no mass, no organomegaly, non-distended, no guarding, no hernia, no pulsatile mass, no rebound Genitourinary: no CVA tenderness Musculoskeletal: normal inspection Neurologic: oriented x3, responsive, buildings painter III-XII nml as tested, motor strength/ tone normal, sensory intact Psychiatric: mood/affect normal Skin: normal color, no rash, warm/dry, palpation normal Lymphatic: normal inspection, no adenopathy Medical Decision Making Diagnostic Impression: Primary Impression: Pharyngitis ER Course Multiple differentials considered Patient does not appear septic or toxic Has clinical findings consistent with pharyngitis possibly bacterial Given the symptomatology and the patient's presentation Given the past medical history patient is covered with antibiotics and requires close outpatient follow-up Last Vital Signs Date Time Temp Pulse Resp B/P (MAP) Pulse Ox O2 Delivery O2 Flow Rate FiO2 07/31/18 11:08 80 16 Room Air 07/31/18 11:00 98.2 123/72 95 98.2 Status: improved Disposition: HOME, SELF-CARE Condition: Improved Scripts Doxycycline Monohydrate* (DOXYCYCLINE MONOHYDRATE*) 100 Mg Capsule 100 MG ORAL Q12H, #14 CAP 0 Refills Prov: Miranda Ventura DO 07/31/18 Additional Instructions: Patient is provided with the discharge instructions notified to follow up with primary doctor in the next 2-3 days otherwise return to the er with any worsening symptoms. Please note that this report is being documented using [employer] technology. This can lead to erroneous entry secondary to incorrect interpretation by the dictating instrument. Miranda Ventura DO Jul 31, 2018 11:28
[2018-07-31] MEDS ORDERED: Azithromycin 250mg tab ORAL ONE (11:30)
[2018-07-31] MEDS ORDERED: Lidocaine 1% MPF 10mg/ml 5ml INJ ONE (11:30)
[2018-07-31] MEDS ORDERED: DOXYCYCLINE MO100 MG ORAL (12:03)
[2018-07-31 12:09] VITALS: BP_SYST 119; BP_SYST 123; BP_DIAS 68; BP_DIAS 72
== END 2018-07-31 12:09 | disposition home or self-care (01) ==
LOC: EMR 11:42
DX: J02.9 Acute pharyngitis, unspecified (principal); R73.03 Prediabetes; Z88.8 Allergy status to other drugs, medicaments and biological substances
CPT/HCPCS: 96372; 99283; J0696; Q0144

== ENCOUNTER 2018-08-09 20:08 | Emergency (ER) | payer MEDICAID ==
[~2018-08-09] VITALS: Ht 180.3 cm; Wt 81.6 kg
[~2018-08-09 20:08] MED LIST changes: +DOXYCYCLINE MO100 MG ORAL
[2018-08-09 20:47] VITALS: BP 132/75
[2018-08-09] MEDS ORDERED: Lidocaine 2% Visc 15ml soln ORAL ONE (21:00)
--- NOTE | 2018-08-09 21:02 | Emergency Room Report ---
History of Present Illness General Chief Complaint: Flu Like Symptoms Present Illness HPI Patient reports new onset oral lesions reports history of HIV also states he just finished course of antibiotics has had URI symptoms since week and a half ago. Patient denies fevers or chills he reports he has an appointment next week with his infectious disease doctor. Patient reports CD4 count was 400 last visit. Denies recent travel or notable ill contacts. Allergies: Coded Allergies: ABACAVIR (Verified Allergy, Severe, Anaphylaxis, 04/02/17) Nursing Documentation-PMH Hx Diabetes: Yes - Pre Diabetic Review of Systems All Other Systems: negative except mentioned in HPI Physical Exam Vital Signs Date Time Temp Pulse Resp B/P (MAP) Pulse Ox O2 Delivery O2 Flow Rate FiO2 08/09/18 20:20 98.8 64 16 129/79 96 Room Air 98.8 Medical Decision Making PA Attestation Dr. Ventura is my supervising Physician whom patient management has been discussed with. Diagnostic Impression: Primary Impression: Mucositis oral ER Course Pt. presents to the ED c/o lesions in the mouth [ ] Ddx considered but are not limited to: stomatitis, up from his ulcers, oral thrush, HFM, koplik spots, HSV, dental abscess, RN CIRCULATING, tonsiliths. Vital signs: are WNL, pt. is afebrile H&PE are most consistent with [ ] ORDERS: none required at this time, the diagnosis is clinical ED INTERVENTIONS: None required at this time. DISCHARGE: At this time pt. is stable for d/c to home. Will provide printed patient care instructions, and any necessary prescriptions. Care plan and follow up instructions have been discussed with the patient prior to discharge. Last Vital Signs Date Time Temp Pulse Resp B/P (MAP) Pulse Ox O2 Delivery O2 Flow Rate FiO2 08/09/18 20:47 68 18 Room Air 08/09/18 20:47 98.8 132/75 98 98.8 Disposition: HOME, SELF-CARE Condition: Stable Scripts Chlorhexidine Gluconate (CHLORHEXIDINE GLUCONATE) 473 Ml Mouthwash 15 ML MM BID, #473 ML Prov: Suzanne Harris 08/09/18 Lidocaine HCL 2% Jelly* (Lidocaine Jelly 2%*) 5 Ml [email or web address] 1 APPLIC TOPIC QID, #5 ML Prov: Suzanne Harris 08/09/18 Patient Instructions: Oral Mucositis Additional Instructions: Take medications as directed. Follow up with a Primary Care Provider in 3 days, even if your symptoms have resolved. Call your Doctor tomorrow to notify him you were seen in the ED with painful oral sores. Return sooner to ED if new symptoms occur, or current symptoms become worse. - Please note that this Emergency Department Report was dictated using [employer] art director technology software, occasionally this can lead to erroneous entry secondary to interpretation by the dictation equipment. Suzanne Harris Aug 09, 2018 21:02
[2018-08-09] MEDS ORDERED: CHLORHEXIDINE473 ML MM (21:06)
[2018-08-09] MEDS ORDERED: LD2JL30 TOPIC (21:06)
[2018-08-09 21:35] VITALS: BP_SYST 127; BP_SYST 132; BP_DIAS 70; BP_DIAS 75
== END 2018-08-09 21:35 | disposition home or self-care (01) ==
LOC: EMR 20:40
DX: K12.30 Oral mucositis (ulcerative), unspecified (principal)
CPT/HCPCS: 99283

== ENCOUNTER 2018-10-29 23:15 | Emergency (ER) | payer MEDICAID ==
[~2018-10-29] VITALS: Ht 182.9 cm; Wt 81.6 kg
[~2018-10-29 23:15] MED LIST changes: +CHLORHEXIDINE473 ML MM; +LD2JL30 TOPIC
[2018-10-29 23:17] VITALS: BP 137/71
[2018-10-29 23:45] VITALS: BP 140/68
[2018-10-29] MEDS ORDERED: ACYCLOVIR400 MG ORAL (23:45)
[2018-10-29] MEDS ORDERED: MUPIROCIN22 GM TOPIC (23:46)
--- NOTE | 2018-10-30 04:49 | Emergency Room Report ---
History of Present Illness General Chief Complaint: Skin Rash/Abscess Source: Patient Present Illness HPI 58-year-old male presents ED for evaluation. States there is a ulcer on his lip and on his penis. States it is been there for some time now. Denies pain. Denies any itchiness. History of HIV but states that he is compliant with his medications and his viral load is undetectable. States that he has had this lesion on his lip for some time now. Was prescribed medication by his PMD but states it did not resolve. States he has been sexually active. Denies any urethral discharge. No other aggravating relieving factors. Denies any other associated symptoms Allergies: Coded Allergies: ABACAVIR (Verified Allergy, Severe, Anaphylaxis, 04/02/17) Patient History Past Medical History: DM, HIV Past Surgical History: none Pertinent Family History: none Social History: Denies: smoking, alcohol use, drug use Immunizations: UTD Reviewed Nursing Documentation: PMH: Agreed; PSxH: Agreed Nursing Documentation-PMH Hx Diabetes: Yes - Pre Diabetic Review of Systems All Other Systems: negative except mentioned in HPI Physical Exam Vital Signs Date Time Temp Pulse Resp B/P (MAP) Pulse Ox O2 Delivery O2 Flow Rate FiO2 10/29/18 23:17 98.1 63 16 137/71 97 Room Air Sp02 EP Interpretation: reviewed, normal General Appearance: no apparent distress, alert, GCS 15, non-toxic Head: normocephalic Eyes: bilateral eye normal inspection, bilateral eye PERRL ENT: hearing grossly normal, normal pharynx, no angioedema, normal voice, other - small ulceration to R lateral lip Neck: normal inspection Respiratory: normal inspection Cardiovascular #1: normal inspection Gastrointestinal: normal inspection Rectal: deferred Genitourinary: no CVA tenderness, other - small ulceration to penile shaft Musculoskeletal: normal inspection Neurologic: alert, oriented x3, responsive, motor strength/tone normal, sensory intact, speech normal Psychiatric: normal inspection Skin: normal inspection Lymphatic: normal inspection Medical Decision Making Diagnostic Impression: Primary Impression: Rash ER Course Hospital Course 58-year-old male presents to ED with rash to lip and penis Differential diagnoses include: Cellulitis, dermatitis, insect bite, abscess Clinical course Patient placed on stretcher. After initial history, physical exam reveals a middle aged male in no acute distress. On exam there is a very small area of ulceration to the right side of the lip. There is also a small ulcer to the shaft of the penis. Patient states these are not resolving despite medications. History of HIV. History of unprotected sex. Consideration for herpes. We will discharge with acyclovir would recommend close follow-up with dermatology Diagnosis - rash stable and discharged to home with prescription for acyclovir, mupirocin. Instructed to followup with PMD/dermatology. Instructed return to ED if symptoms recur or worsen Last Vital Signs Date Time Temp Pulse Resp B/P (MAP) Pulse Ox O2 Delivery O2 Flow Rate FiO2 10/29/18 23:45 98.0 86 18 140/68 99 Room Air Status: improved Disposition: HOME, SELF-CARE Condition: Stable Scripts Mupirocin* (MUPIROCIN*) 22 Gm Oint...g. 1 APPLIC TOPIC THREE TIMES A DAY, #22 GM Prov: Kyle Tatum MD 10/29/18 Acyclovir* (ACYCLOVIR*) 400 Mg Tablet 400 MG ORAL FIVE TIMES A DAY for 7 Days, TAB Prov: Kyle Tatum MD 10/29/18 Referrals: NON PHYSICIAN (PCP) Patient Instructions: Oral Ulcers Kyle Tatum MD Oct 30, 2018 04:49
== END 2018-10-29 23:45 | disposition home or self-care (01) ==
LOC: EMR 23:28
DX: R21 Rash and other nonspecific skin eruption (principal); N48.5 Ulcer of penis; E11.9 Type 2 diabetes mellitus without complications; Z88.8 Allergy status to other drugs, medicaments and biological substances
CPT/HCPCS: 99282

== ENCOUNTER 2018-11-25 23:54 | Emergency (ER) | payer MEDICAID ==
[~2018-11-25] VITALS: Ht 180.3 cm; Wt 81.6 kg
[~2018-11-25 23:54] MED LIST changes: +ACYCLOVIR400 MG ORAL; +MUPIROCIN22 GM TOPIC
[2018-11-26 00:10] VITALS: BP 123/72
--- NOTE | 2018-11-26 00:37 | Emergency Room Report ---
History of Present Illness General Chief Complaint: Headache Source: Patient, Medical Record Present Illness HPI Is a 58-year-old male with a history of HIV. CD4 count is were 500 in by load is undetectable. Patient presents with right-sided headache for the last 3-4 days. Does have some congestion. No fever or chills. Throbbing in nature. Tingling to the scalp. Pain is 9 out of 10. No focal deficit. Similar symptoms in the past. He said he had a concussion about 10 years ago and occasionally get headaches since. Denies any other complaint. Allergies: Coded Allergies: ABACAVIR (Verified Allergy, Severe, Anaphylaxis, 11/25/18) Patient History Past Medical History: see triage record, old chart reviewed Past Surgical History: none Pertinent Family History: none Social History: Denies: drug use Immunizations: other Reviewed Nursing Documentation: PMH: Agreed; PSxH: Agreed Nursing Documentation-PMH Past Medical History: No History, Except For Hx Diabetes: Yes - Pre Diabetic Review of Systems Eye: Denies: eye pain, blurred vision ENT: Denies: ear pain, nose congestion, throat swelling Respiratory: Denies: cough, shortness of breath Cardiovascular: Denies: chest pain, palpitations Gastrointestinal: Denies: abdominal pain, diarrhea, nausea, vomiting Musculoskeletal: Denies: back pain, joint pain Skin: Denies: rash Neurological: Reports: headache; Denies: numbness Endocrine: Denies: increased thirst, increased urine Hematologic/Lymphatic: Denies: easy bruising All Other Systems: negative except mentioned in HPI Physical Exam Vital Signs Date Time Temp Pulse Resp B/P (MAP) Pulse Ox O2 Delivery O2 Flow Rate FiO2 11/25/18 23:59 98.2 71 16 123/72 98 Room Air vitals normal Sp02 EP Interpretation: reviewed, normal General Appearance: well appearing, no apparent distress, alert Head: normocephalic, atraumatic Eyes: bilateral eye PERRL, bilateral eye EOMI ENT: hearing grossly normal, normal pharynx Neck: full range of motion, supple, no meningismus Respiratory: chest non-tender, lungs clear, normal breath sounds Cardiovascular #1: regular rate, rhythm, no murmur Gastrointestinal: normal bowel sounds, non tender, no mass, no organomegaly, no bruit, non-distended Musculoskeletal: back normal, gait/station normal, normal range of motion Psychiatric: mood/affect normal Skin: warm/dry Medical Decision Making Diagnostic Impression: Primary Impression: Headache Qualified Codes: R51 - Headache ER Course Patient with headache. No evidence of meningitis, bleed, neoplastic process. We'll discharge home. Last Vital Signs Date Time Temp Pulse Resp B/P (MAP) Pulse Ox O2 Delivery O2 Flow Rate FiO2 11/25/18 23:59 98.2 71 16 123/72 98 Room Air Status: improved Disposition: HOME, SELF-CARE Condition: Stable Scripts Tramadol Hcl* (ULTRAM*) 50 Mg Tablet 50 MG ORAL Q6H PRN for For Pain, #20 TAB 0 Refills Prov: Renaldo Kwon MD 11/26/18 Patient Instructions: General Headache Without Cause Additional Instructions: Follow-up with your doctor in 7 days. Return if symptom worsen. Renaldo Kwon MD Nov 26, 2018 00:37
[2018-11-26] MEDS ORDERED: Ketorolac 60mg Inj IM ONE (00:45)
[2018-11-26 01:20] VITALS: BP 134/72
[2018-11-26] MEDS ORDERED: TRAMADOL HCL50 MG ORAL (01:22)
--- NOTE | 2018-11-26 08:15 | Diagnostic Imaging Report ---
Indication: Headache Technique: Continuous helical CT scanning of the head was performed utilizing automated exposure control without intravenous contrast material. Axial and coronal reconstructions were obtained. Comparison: None CT dose: Total DLP 1372.16 mGycm; CTDI vol 70.38 mGy Findings: There is no acute intracranial hemorrhage, mass effect or cortical edema. The ventricles, cisterns and sulci are within normal limits for age. Visualized mastoid air cells are clear. Minimal mucosal thickening noted in the paranasal sinuses.. No focal lesions of the bony calvarium or soft tissues of the scalp are seen. IMPRESSION: No acute intracranial abnormality. MRI may be obtained for more sensitive evaluation as clinically indicated. This corresponds with the statrad preliminary report. The CT scanner at [facility] is accredited by the [employer] and the scans are performed using protocols designed to limit radiation exposure to as low as reasonably achievable to attain images of sufficient resolution adequate for diagnostic evaluation.
== END 2018-11-26 01:20 | disposition home or self-care (01) ==
LOC: EMR 11-26 00:30
DX: R51 Headache (principal); R73.03 Prediabetes
CPT/HCPCS: 70450; 96372; 99283; Z7502

== ENCOUNTER 2019-03-27 02:28 | Emergency (ER) | payer MEDICAID ==
[~2019-03-27] VITALS: Ht 180.3 cm; Wt 79.4 kg
[2019-03-27 02:50] VITALS: BP 109/71
[2019-03-27] MEDS ORDERED: HYDROCODON-ACE1 EA15 ORAL (02:58)
[2019-03-27] MEDS ORDERED: IBUPROFEN600 MG ORAL (02:58)
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
[2019-03-27 03:05] VITALS: BP 109/71
== END 2019-03-27 03:05 | disposition home or self-care (01) ==
LOC: EMR 02:50
DX: S39.012A Strain of muscle, fascia and tendon of lower back, initial encounter (principal); R73.03 Prediabetes; B20 Human immunodeficiency virus [HIV] disease; V43.52XA Car driver injured in collision with other type car in traffic accident, initial encounter; Y92.410 Unspecified street and highway as the place of occurrence of the external cause; Z88.8 Allergy status to other drugs, medicaments and biological substances
CPT/HCPCS: 99283

== ENCOUNTER 2019-05-08 11:22 | Emergency (ER) | payer MEDICAID ==
[~2019-05-08] VITALS: Ht 180.3 cm; Wt 79.4 kg
[~2019-05-08 11:22] MED LIST changes: +HYDROCODON-ACE1 EA15 ORAL
[2019-05-08 11:25] VITALS: BP 118/74
--- NOTE | 2019-05-08 11:30 | NUR ---
ED Nurse Note: Patient presents to ER due to flu-like symptoms, sore throat. Patient awake, alert, oriented x 4. Regular, unlabored breathing noted. No cough, fever or chills noted. Patient able to drink fluids and swallow without difficulty.
[2019-05-08] MEDS ORDERED: AUGMENTIN 875-1 EAC1 ORAL (11:38)
--- NOTE | 2019-05-08 11:41 | Emergency Room Report ---
History of Present Illness General Chief Complaint: Flu Like Symptoms Source: Patient, Medical Record Present Illness HPI Patient presents with complaints of sore throat Body ache fevers and chills ongoing for the past 4 days Denies any posterior neck pain denies any headache patient does also have cough and mild congestion Denies any chest pain or shortness of breath Denies any vomiting or diarrhea denies any rash Allergies: Coded Allergies: ABACAVIR (Verified Allergy, Severe, Anaphylaxis, 11/25/18) Patient History Past Medical History: see triage record Pertinent Family History: none Reviewed Nursing Documentation: PMH: Agreed; PSxH: Agreed Nursing Documentation-PMH Past Medical History: No History, Except For Hx Diabetes: Yes - Pre Diabetic Review of Systems All Other Systems: negative except mentioned in HPI Physical Exam Vital Signs Date Time Temp Pulse Resp B/P (MAP) Pulse Ox O2 Delivery O2 Flow Rate FiO2 05/08/19 11:25 97.9 62 18 118/74 (89) 96 Room Air Sp02 EP Interpretation: reviewed, normal General Appearance: well appearing, no apparent distress Head: normocephalic, atraumatic Eyes: bilateral eye PERRL, bilateral eye EOMI ENT: hearing grossly normal, TMs + canals normal, uvula midline, pharyngeal erythema Neck: full range of motion, supple, no meningismus, no bony tend Respiratory: lungs clear, normal breath sounds, no rhonchi, no respiratory distress, no retraction, no accessory muscle use Cardiovascular #1: normal peripheral pulses, regular rate, rhythm, no edema, no gallop, no JVD, no murmur Gastrointestinal: normal bowel sounds, non tender, soft, no mass, no organomegaly, non-distended, no guarding, no hernia, no pulsatile mass, no rebound Genitourinary: no CVA tenderness Musculoskeletal: normal inspection Neurologic: oriented x3, responsive, glass cut off supervisor III-XII nml as tested, motor strength/ tone normal, sensory intact Psychiatric: mood/affect normal Skin: normal color, no rash, warm/dry, palpation normal Lymphatic: normal inspection, no adenopathy Medical Decision Making Diagnostic Impression: Primary Impression: pharyngitis Last Vital Signs Date Time Temp Pulse Resp B/P (MAP) Pulse Ox O2 Delivery O2 Flow Rate FiO2 05/08/19 11:25 97.9 62 18 118/74 (89) 96 Room Air Disposition: HOME, SELF-CARE Condition: Stable Scripts Amoxicillin/Potassium Clav 875-125* (AUGMENTIN 875-125 TABLET*) 1 Each Tablet 1 TAB ORAL TWICE A DAY, #10 TAB Prov: Miranda Ventura DO 05/08/19 Patient Instructions: Pharyngitis, [id number] Additional Instructions: Patient is provided with the discharge instructions notified to follow up with primary doctor in the next 2-3 days otherwise return to the er with any worsening symptoms. Please note that this report is being documented using [employer] technology. This can lead to erroneous entry secondary to incorrect interpretation by the dictating instrument. Miranda Ventura DO May 08, 2019 11:41
[2019-05-08 11:42] VITALS: BP 118/74
--- NOTE | 2019-05-08 11:42 | NUR ---
ED Nurse Note: Pt cleared by health care Provider for discharge. DC instructions/prescription was given and explained to pt and verbalized understanding of teachings. All medical deviecs such as ID band removed. Pt is AAO x4, ambulatory and left with all personal belongings.
== END 2019-05-08 14:33 | disposition home or self-care (01) ==
LOC: EMR 11:29
DX: J02.9 Acute pharyngitis, unspecified (principal); Z88.8 Allergy status to other drugs, medicaments and biological substances; R73.03 Prediabetes
CPT/HCPCS: 99282

== ENCOUNTER 2019-06-03 15:30 | Emergency (ER) | payer MEDICAID ==
[~2019-06-03] VITALS: Ht 180.3 cm; Wt 77.1 kg
[~2019-06-03 15:30] MED LIST changes: +AUGMENTIN 875-1 EAC1 ORAL
--- NOTE | 2019-06-03 15:40 | NUR ---
ED Nurse Note: Patient walked into ED c/o itchy, red lesion on the left upper arm/wrist area. patient reports he got bitten by unknown bug about 5 days ago. patient is alert awake x4 ambulatory, breathing unlabored and even.
[2019-06-03 15:42] VITALS: BP 121/68
--- NOTE | 2019-06-03 15:52 | Emergency Room Report ---
History of Present Illness General Chief Complaint: Skin Rash/Abscess Source: Patient Present Illness HPI 59 YO Male presents to the ED c/o progressive itchy rash made up of many small bumps that have been progressing up his left arm, and now a similar rash on the right wrist X 5 days. Pt. reports first set of bumps occurred on his left wrist. Pt. denies fevers, chills or swollen tender lymph nodes. Denies lesions/ rashes elsewhere on the body. Denies new medications or body washes or creams. Denies swelling of the lips, tongue , throat or airway. Denies wheezing, or shortness of breath. Denies recent travel, recent illness or ill contacts. Denies blisters, oral lesions, or sloughing of the skin. pt w. hx of HIV. reports CD4 count above 500. pt. reports itching worse at night. has been applying triamcinolone and mupirocin topically without relief. Allergies: Coded Allergies: ABACAVIR (Verified Allergy, Severe, Anaphylaxis, 11/25/18) Patient History Past Medical History: see triage record, HIV Past Surgical History: none Pertinent Family History: none Reviewed Nursing Documentation: PMH: Agreed; PSxH: Agreed Nursing Documentation-PMH Past Medical History: No History, Except For Hx Diabetes: Yes - Pre Diabetic Review of Systems All Other Systems: negative except mentioned in HPI Physical Exam Vital Signs Date Time Temp Pulse Resp B/P (MAP) Pulse Ox O2 Delivery O2 Flow Rate FiO2 06/03/19 15:33 97.5 62 18 122/76 (91) 99 Room Air Sp02 EP Interpretation: reviewed, normal General Appearance: no apparent distress, alert, GCS 15, non-toxic Head: normocephalic, atraumatic Eyes: bilateral eye normal inspection, bilateral eye PERRL ENT: hearing grossly normal, normal pharynx, no angioedema, normal voice, other - no stridor Neck: full range of motion Respiratory: chest non-tender, lungs clear, normal breath sounds, speaking full sentences Cardiovascular #1: regular rate, rhythm Musculoskeletal: back normal, gait/station normal, normal range of motion, non- tender Neurologic: alert, oriented x3, responsive, motor strength/tone normal, sensory intact, normal gait, speech normal, grossly normal Psychiatric: judgement/insight normal Skin: rash - rash on both UE's- multiple papules with excoriations no erythema , blisters or vessicles. No crusting, bleedind or d/c Medical Decision Making PA Attestation Dr. Olivarez is my supervising Physician whom patient management has been discussed with. Diagnostic Impression: Primary Impression: Rash and other nonspecific skin eruption Additional Impression: Scabies ER Course 59 YO Male presents to the ED c/o progressive itchy rash made up of many small bumps that have been progressing up his left arm, and now a similar rash on the right wrist X 5 days. Pt. reports first set of bumps occurred on his left wrist. Pt. denies fevers, chills or swollen tender lymph nodes. Denies lesions/ rashes elsewhere on the body. Denies new medications or body washes or creams. Denies swelling of the lips, tongue , throat or airway. Denies wheezing, or shortness of breath. Denies recent travel, recent illness or ill contacts. Denies blisters, oral lesions, or sloughing of the skin. pt w. hx of HIV. reports CD4 count above 500. pt. reports itching worse at night. has been applying triamcinolone and mupirocin topically without relief. 2 out of 10 pain but he describes burning sensation after itching. Ddx considered but are not limited to cellulitis, scabies, shingles, varicella, dermatitis, urticaria, eczema, tinea, viral exanthem, SJS Vital signs: are WNL, pt. is afebrile H&PE are most consistent with scabies no secondary bacterial infection noted. ORDERS: none required at this time, the diagnosis is clinical ED INTERVENTIONS: None required at this time. DISCHARGE: At this time pt. is stable for d/c to home. Will provide printed patient care instructions, and any necessary prescriptions. Care plan and follow up instructions have been discussed with the patient prior to discharge. Last Vital Signs Date Time Temp Pulse Resp B/P (MAP) Pulse Ox O2 Delivery O2 Flow Rate FiO2 06/03/19 15:42 97.5 65 18 121/68 99 Room Air Status: improved Disposition: HOME, SELF-CARE Condition: Stable Scripts Diphenhydramine Hcl (ALLERGY) 25 Mg Tablet 25 MG PO Q6HR, #30 TAB Prov: Suzanne Harris 06/03/19 Permethrin* (ELIMITE*) 60 Gm Cream..g. 1 APPLIC TOPIC ONCE, #60 GM 1 Refill Apply cream from head to toe; leave on for 8-14 hours before washing off with water; may reapply in 1 week if live mites appear. Prov: Suzanne Harris 06/03/19 Patient Instructions: Rash, Scabies, Pediatric Additional Instructions: Take medications as directed. Follow up with a Primary Care Provider in 3-5 days, even if your symptoms have resolved. --Please review list of primary care clinics, if you do not already have a primary care provider Return sooner to ED if new symptoms occur, or current symptoms become worse. - Please note that this Emergency Department Report was dictated using [employer] technology software, occasionally this can lead to erroneous entry secondary to interpretation by the dictation equipment. Suzanne Harris Jun 03, 2019 15:52
[2019-06-03] MEDS ORDERED: ALLERGY25 M1 PO (15:55)
[2019-06-03] MEDS ORDERED: PERMETHRIN60 GM TOPIC (15:55)
[2019-06-03 16:08] VITALS: BP 121/68
== END 2019-06-03 16:08 | disposition home or self-care (01) ==
LOC: EMR 15:55
DX: R21 Rash and other nonspecific skin eruption (principal); B86 Scabies; Z88.8 Allergy status to other drugs, medicaments and biological substances; R73.03 Prediabetes
CPT/HCPCS: 99282

== ENCOUNTER 2019-10-23 07:26 | Emergency (ER) | payer MEDICAID ==
[~2019-10-23] VITALS: Ht 180.3 cm; Wt 79.4 kg
[~2019-10-23 07:26] MED LIST changes: +ALLERGY25 M1 PO; +PERMETHRIN60 GM TOPIC
[2019-10-23 07:35] VITALS: BP 127/77
[2019-10-23] MEDS ORDERED: TRUVADA 200 MG1 EAC1 ORAL (07:39)
--- NOTE | 2019-10-23 07:45 | NUR ---
ED Nurse Note: pt walked in to ED due to sore throat for last 3 days. no fever or chills reported. dry cough reported. skin warm to touch. breath sounds clear. respirations even and non-labored noted. AAO x4. will wait for the further order.
[2019-10-23] MEDS ORDERED: BACTRIM DS TAB1 EAC1 ORAL (07:59)
[2019-10-23] MEDS ORDERED: FLUCONAZOLE100 MG ORAL (07:59)
[2019-10-23] MEDS ORDERED: Lidocaine 2% Visc 15ml soln ORAL ONE (08:00)
--- NOTE | 2019-10-23 08:02 | Emergency Room Report ---
History of Present Illness General Chief Complaint: Sore Throat Source: Medical Record Present Illness HPI Patient is a 59-year-old male presents after increased sore throat. Patient had some subjective body aches and intermittent fever. Had prior history of HIV. He reports having undetectable viral load and normal CD4 count. He is currently taking antiretrovirals. Reports having some increased difficulty with swallowing. He denies any headache. Denies any cough. He reports having been compliant with his medications. Denies any nausea or vomiting. Allergies: Coded Allergies: ABACAVIR (Verified Allergy, Severe, Anaphylaxis, 11/25/18) Patient History Past Medical History: see triage record Reviewed Nursing Documentation: PMH: Agreed; PSxH: Agreed Nursing Documentation-PMH Past Medical History: No History, Except For Hx Cardiac Problems: No - HIV Hx Hypertension: No Hx Pacemaker: No Hx Asthma: No Hx COPD: No Hx Diabetes: No Hx Cancer: No Hx Gastrointestinal Problems: No Hx Dialysis: No History Of Psychiatric Problem: No Hx Neurological Problems: No Hx Cerebrovascular Accident: No Hx Seizures: No Review of Systems All Other Systems: negative except mentioned in HPI Physical Exam Vital Signs Date Time Temp Pulse Resp B/P (MAP) Pulse Ox O2 Delivery O2 Flow Rate FiO2 10/23/19 07:35 98.2 73 16 127/77 (94) 96 Room Air General Appearance: well appearing, no apparent distress, alert, GCS 15 Head: normocephalic, atraumatic ENT: hearing grossly normal, normal voice, pharyngeal erythema, tonsillar exudate, other - white patches to posterior pharynx Neck: full range of motion, supple Respiratory: lungs clear, normal breath sounds, no respiratory distress, speaking full sentences Cardiovascular #1: normal inspection Gastrointestinal: normal inspection, non tender, soft Musculoskeletal: normal inspection, no calf tenderness Neurologic: alert, motor strength/tone normal, senior oracle dba III-XII nml as tested, normal gait Psychiatric: mood/affect normal Skin: no rash Medical Decision Making Diagnostic Impression: Primary Impression: Oral candidiasis Additional Impression: Pharyngitis Last Vital Signs Date Time Temp Pulse Resp B/P (MAP) Pulse Ox O2 Delivery O2 Flow Rate FiO2 10/23/19 07:35 98.2 73 16 127/77 96 Room Air Disposition: HOME, SELF-CARE Condition: Stable Scripts Fluconazole (FLUCONAZOLE) 100 Mg Tablet 100 MG ORAL DAILY, #7 TAB 0 Refills Prov: Israel Olivarez MD 10/23/19 Trimethoprim/Sulfamethoxazole 160/800* (BACTRIM DS TABLET*) 1 Each Tablet 1 TAB ORAL Q12H, #14 TAB 0 Refills Prov: Israel Olivarez MD 10/23/19 Patient Instructions: Thrush, Adult, Pharyngitis, [id number] Additional Instructions: Follow up with your doctor for recheck in 2-3 days. Return if worse. Israel Olivarez MD Oct 23, 2019 08:02
[2019-10-23 08:08] VITALS: BP 116/82
--- NOTE | 2019-10-23 08:09 | NUR ---
ED Nurse Note: Pt cleared by health care Provider for discharge. DC instructions and electronically sent prescription was given and explained to pt and verbalized understanding of teachings. All medical deviecs such as ID band removed. Pt is AAO x4, ambulatory and left with all personal belongings.
== END 2019-10-23 08:10 | disposition home or self-care (01) ==
LOC: EMR 07:50
DX: B37.0 Candidal stomatitis (principal); J02.9 Acute pharyngitis, unspecified; B20 Human immunodeficiency virus [HIV] disease; Z88.8 Allergy status to other drugs, medicaments and biological substances
CPT/HCPCS: 99282

== ENCOUNTER 2019-11-04 11:17 | Emergency (ER) | payer MEDICAID ==
[~2019-11-04] VITALS: Ht 182.9 cm; Wt 79.4 kg
[~2019-11-04 11:17] MED LIST changes: +FLUCONAZOLE100 MG ORAL
[2019-11-04 11:35] VITALS: BP 120/66
--- NOTE | 2019-11-04 11:35 | NUR ---
ED Nurse Note: Patient arrived to ED from home stating he has had a sore throat for a week. He was here about 1 week ago and states he still feels sick. Patient has a non-productive cough, afebrile. No acute distress noted.
[2019-11-04] MEDS ORDERED: Ipratropium 0.02% Inh Soln 2.5ml UD HHN ONE (12:00)
[2019-11-04] MEDS ORDERED: Albuterol ud Inhalation HHN ONE (12:00)
--- NOTE | 2019-11-04 12:02 | Emergency Room Report ---
History of Present Illness General Chief Complaint: Flu Like Symptoms Source: Patient Present Illness HPI Patient here with cough and chest pain. He was started on fluconazole and Bactrim. He says he keri only been taking these 2 medications for 2 days. He also complains about sore throat. He is been able to swallow and eat without difficulty. He complains of throat pain is 9/10 and burning and aching. He has heard himself wheezing but has never used an inhaler in recent history. He has a smoking history. He denies nausea, vomiting, diarrhea or dysuria. There are no skin rashes. He denies joint pain. There is no neck stiffness. He states no work-up was done when he presented before. The patient is HIV positive and is on antivirals. He states no work-up was done when he presented before. This is the medical history from October 23: Patient is a 59-year-old male presents after increased sore throat. Patient had some subjective body aches and intermittent fever. Had prior history of HIV. He reports having undetectable viral load and normal CD4 count. He is currently taking antiretrovirals. Reports having some increased difficulty with swallowing. He denies any headache. Denies any cough. He reports having been compliant with his medications. Denies any nausea or vomiting. He had white pharyngeal plaques. 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 Reviewed Nursing Documentation: PMH: Agreed; PSxH: Agreed Nursing Documentation-PMH Hx Cardiac Problems: No - HIV Hx Hypertension: No Hx Pacemaker: No Hx Asthma: No Hx COPD: No Hx Diabetes: No Hx Cancer: No Hx Gastrointestinal Problems: No Hx Dialysis: No Hx Neurological Problems: No Hx Cerebrovascular Accident: No Hx Seizures: No Review of Systems All Other Systems: negative except mentioned in HPI Physical Exam Vital Signs Date Time Temp Pulse Resp B/P (MAP) Pulse Ox O2 Delivery O2 Flow Rate FiO2 11/04/19 11:27 98.1 78 19 120/66 (84) 95 Room Air Sp02 EP Interpretation: reviewed, normal General Appearance: well appearing, no apparent distress, GCS 15 Head: normocephalic Eyes: bilateral eye normal inspection, bilateral eye PERRL, bilateral eye EOMI ENT: moist mucus membranes, pharyngeal erythema, other - No exudates or plaques Neck: full range of motion, supple, no meningismus Respiratory: chest non-tender, wheezing - Minimal end expiratory Cardiovascular #1: regular rate, rhythm, no edema Gastrointestinal: normal inspection Musculoskeletal: gait/station normal Neurologic: alert, grossly normal Psychiatric: mood/affect normal Skin: normal inspection Medical Decision Making Diagnostic Impression: Primary Impression: Bronchospasm Additional Impressions: Partially treated bronchitis Pharyngitis Qualified Codes: J02.9 - Acute pharyngitis, unspecified Chest pain Qualified Codes: R07.9 - Chest pain, unspecified ER Course Patient with HIV on antivirals presents with cough, wheezing and sore throat. Differential includes strep, Em, viral amongst others. The patient has evidence of bronchospasm at this time. A breathing treatment is indicated. In addition EKG and chest x-ray are ordered. Finally an influenza swab will be obtained. EKG no injury. Chest x-ray no infiltrates. Influenza negative. Patient improved with treatment. Discussed findings with patient and treatment plan. Patient stable for outpatient observation and treatment. EKG Diagnostic Results Rate: normal Rhythm: NSR ST Segments: no acute changes - Early repolarization Rhythm Strip Diag. Results EP Interpretation: yes Rhythm: NSR, no PVC's, no ectopy Chest X-Ray Diagnostic Results Chest X-Ray Diagnostic Results : Chest X-Ray Ordered: Yes # of Views/Limited/Complete: 1 View Indication: Other EP Interpretation: Yes Interpretation: no consolidation, no effusion, no pneumothorax Impression: No acute disease Electronically Signed by: Electronically signed by Tomas Serna MD Last Vital Signs Date Time Temp Pulse Resp B/P (MAP) Pulse Ox O2 Delivery O2 Flow Rate FiO2 11/04/19 14:40 98.0 88 18 125/67 98 Room Air 11/04/19 12:17 21 Status: improved Disposition: HOME, SELF-CARE Condition: Improved Scripts Guaifenesin/Codeine Phos* (ROBITUSSIN AC*) 118 Ml Liquid 5 ML ORAL Q6H PRN for For Cough, #90 ML 0 Refills Prov: Tomas Serna MD 11/04/19 Albuterol Sulfate* (ALBUTEROL SULFATE MDI*) 8.5 Gm Hfa.aer.ad 2 PUFF INH Q6H, #1 EA 0 Refills Prov: Tomas Serna MD 11/04/19 Tomas Serna MD Nov 04, 2019 12:02
--- NOTE | 2019-11-04 13:02 | Diagnostic Imaging Report ---
Indication: Cough Technique: One view of the chest Comparison: none Findings: Lungs and pleural spaces are clear. Heart size is normal. Impression: No acute process
[2019-11-04] MEDS ORDERED: ALBUTEROL SULF8.5 GM INH (14:28)
[2019-11-04] MEDS ORDERED: GUAIFENESIN-CO118 M1 ORAL (14:28)
[2019-11-04 14:40] VITALS: BP 125/67
--- NOTE | 2019-11-04 14:40 | NUR ---
ED Nurse Note: Patient cleared for discharge by ER MD, patient given prescriptions and verbalized understanding regarding discharge instructions.
--- NOTE | 2019-11-05 13:47 | Cardiology Report ---
APPROVED REPORT EKG Measurement Heart [id number] Normal sinus rhythm Early repolarization Normal ECG
== END 2019-11-04 14:40 | disposition home or self-care (01) ==
LOC: EMR 12:53
DX: J20.9 Acute bronchitis, unspecified (principal); J02.9 Acute pharyngitis, unspecified; R07.9 Chest pain, unspecified; B20 Human immunodeficiency virus [HIV] disease; Z88.8 Allergy status to other drugs, medicaments and biological substances; Z87.891 Personal history of nicotine dependence; F10.21 Alcohol dependence, in remission
CPT/HCPCS: 71045; 86710; 93005; 94640; 94664; Z7502; 99284

== ENCOUNTER 2020-03-16 01:31 | Emergency (ER) | payer MEDICAID ==
[~2020-03-16] VITALS: Ht 182.9 cm; Wt 79.4 kg
[~2020-03-16 01:31] MED LIST changes: +GUAIFENESIN-CO118 M1 ORAL
[2020-03-16 01:58] VITALS: BP 122/77
--- NOTE | 2020-03-16 02:05 | Emergency Room Report ---
History of Present Illness General Chief Complaint: Chest Pain Source: Patient Present Illness HPI This is a 59-year-old male with history of HIV. Viral load is undetectable and CD4 counts in the 500. He presents with chief complaint of chest tightness and cough for about a week. Nonproductive nature. No fever chills but no nausea no vomiting. No exertional component. Because of the tightness in his chest he came in to get checked. He has no radiation of the pain. No exertional component. No diaphoresis. Patient said that he is getting COVID testing tomorrow. Allergies: Coded Allergies: ABACAVIR (Verified Allergy, Severe, Anaphylaxis, 11/25/18) COVID-19 Screening Contact w/high risk pt: No Recent Travel to affected area: No Experienced COVID-19 symptoms?: No Patient History Past Medical History: see triage record, old chart reviewed, HIV Past Surgical History: none Pertinent Family History: none Social History: Denies: smoking, alcohol use, drug use Immunizations: UTD Reviewed Nursing Documentation: PMH: Agreed; PSxH: Agreed Nursing Documentation-PMH Hx Cardiac Problems: No - HIV Hx Hypertension: No Hx Pacemaker: No Hx Asthma: No Hx COPD: No Hx Diabetes: No Hx Cancer: No Hx Gastrointestinal Problems: No Hx Dialysis: No Hx Neurological Problems: No - Hi five Hx Cerebrovascular Accident: No Hx Seizures: No Review of Systems Eye: Denies: eye pain, blurred vision ENT: Denies: ear pain, nose congestion, throat swelling Respiratory: Reports: cough; Denies: shortness of breath Cardiovascular: Denies: chest pain, palpitations Gastrointestinal: Denies: abdominal pain, diarrhea, nausea, vomiting Musculoskeletal: Denies: back pain, joint pain Skin: Denies: rash Neurological: Denies: headache, numbness Endocrine: Denies: increased thirst, increased urine Hematologic/Lymphatic: Denies: easy bruising All Other Systems: negative except mentioned in HPI Physical Exam Vital Signs Date Time Temp Pulse Resp B/P (MAP) Pulse Ox O2 Delivery O2 Flow Rate FiO2 03/16/20 01:37 97.9 70 18 154/87 (109) 97 Room Air Vitals with high blood pressure Sp02 EP Interpretation: reviewed, normal General Appearance: well appearing, no apparent distress, alert Head: normocephalic, atraumatic Eyes: bilateral eye PERRL, bilateral eye EOMI ENT: hearing grossly normal, normal pharynx Neck: full range of motion, supple, no meningismus Respiratory: chest non-tender, lungs clear, normal breath sounds Cardiovascular #1: regular rate, rhythm, no murmur Gastrointestinal: normal bowel sounds, non tender, no mass, no organomegaly, no bruit, non-distended Musculoskeletal: back normal, normal range of motion, gait/station normal Psychiatric: mood/affect normal Medical Decision Making Diagnostic Impression: Primary Impression: Upper respiratory infection Qualified Codes: J06.9 - Acute upper respiratory infection, unspecified ER Course Patient with an upper respiratory infection. Most likely viral in nature. He has no sick contacts, recent travel or exposure to COVID. However in the midst of a pandemic. If he does have COVID infection, is very mild. Because it has been a week, will put him on antibiotics. Patient is getting testing in the morning. No evidence of ACS, PE, dissection to name a few. EKG Diagnostic Results Rate: normal Rhythm: NSR ST Segments: no acute changes Rhythm Strip Diag. Results EP Interpretation: yes Rate: 65 Rhythm: NSR, no PVC's, no ectopy Chest X-Ray Diagnostic Results Chest X-Ray Diagnostic Results : Chest X-Ray Ordered: Yes # of Views/Limited/Complete: 1 View Indication: Shortness of Breath EP Interpretation: Yes Interpretation: no consolidation, no effusion, no pneumothorax, no acute cardiopulmonary disease Impression: No acute disease Electronically Signed by: Renaldo Kwon MD Last Vital Signs Date Time Temp Pulse Resp B/P (MAP) Pulse Ox O2 Delivery O2 Flow Rate FiO2 03/16/20 01:58 97.9 71 17 122/77 97 Room Air Status: improved Disposition: HOME, SELF-CARE Condition: Stable Scripts Hydroxychloroquine Sulfate (HYDROXYCHLOROQUINE SULFATE) 200 Mg Tablet 200 MG PO BID for 5 Days, TAB Prov: Renaldo Kwon MD 03/16/20 Albuterol Sulfate* (PROAIR HFA*) 8.5 Gm Hfa.aer.ad 2 PUFFS INH Q4HR, #8.5 GM 0 Refills Prov: Renaldo Kwon MD 03/16/20 Azithromycin* (ZITHROMAX*) 250 Mg Tablet 250 MG ORAL DAILY, #4 TAB Prov: Renaldo Kwon MD 03/16/20 Additional Instructions: Follow-up with your doctor in 7 days. Good handwashing. Assume that you have COVID infection. Return if symptoms worsen. Renaldo Kwon MD Mar 16, 2020 02:05
[2020-03-16] MEDS ORDERED: Azithromycin 250mg tab ORAL ONE (02:15)
[2020-03-16] MEDS ORDERED: ZITHROMAX250 MG ORAL (02:36)
[2020-03-16] MEDS ORDERED: PROAIR HFA8.5 GM INH (02:36)
[2020-03-16] MEDS ORDERED: HYDROXYCHLOROQ200 M1 PO (02:38)
[2020-03-16 03:03] VITALS: BP 132/89
--- NOTE | 2020-03-16 07:49 | Diagnostic Imaging Report ---
Indication: Reason For Exam: SOB Technique: One view of the chest Comparison: 11/04/2019 Findings: Is no significant change less optimal inspiration. Lungs and pleural spaces are clear. Heart size is normal. Impression: No acute process
== END 2020-03-16 03:03 | disposition home or self-care (01) ==
LOC: EMR 02:14
DX: J06.9 Acute upper respiratory infection, unspecified (principal); B20 Human immunodeficiency virus [HIV] disease; Z88.8 Allergy status to other drugs, medicaments and biological substances
CPT/HCPCS: 71045; 93005; Q0144; Z7502; 99283

== ENCOUNTER 2020-08-10 00:59 | Emergency (ER) | payer MEDICAID ==
[~2020-08-10] VITALS: Ht 180.3 cm; Wt 81.6 kg
[~2020-08-10 00:59] MED LIST changes: +HYDROXYCHLOROQ200 M1 PO; +PROAIR HFA8.5 GM INH
[2020-08-10 02:15] VITALS: BP 151/88
[2020-08-10] MEDS ORDERED: IBUPROFEN600 M1 ORAL (02:15)
[2020-08-10] MEDS ORDERED: LIDOCAINE HC35.44 GM TP (02:15)
[2020-08-10] MEDS ORDERED: DOCUSATE SODIU100 MG ORAL (02:15)
[2020-08-10] MEDS ORDERED: ANUSOL-HC30 GM RC (02:15)
[2020-08-10 02:25] VITALS: BP 151/88
--- NOTE | 2020-08-10 02:29 | Emergency Room Report ---
History of Present Illness General Chief Complaint: Pain Source: Patient Present Illness HPI Disclaimer: Please note that this report is being documented using DRAGON technology. This can lead to erroneous entry secondary to incorrect interpretation by the dictating instrument. HPI: 60-year-old male presents for evaluation of painful hemorrhoid. Patient states he has had hemorrhoids in the past that required banding and 4 days ago began to experience pain with defecation. He notes some bright red bleeding after bowel movements. No significant blood loss was noted. He has been soaking in Epsom salts bath, using Motrin and took [place] from a friend with minimal improvement. Denies fever, diarrhea, mucoid drainage, abdominal pain or other symptoms at this time. PMH: Reviewed PSH: Reviewed Allergies: Reviewed Social Hx: Reviewed Allergies: Coded Allergies: ABACAVIR (Verified Allergy, Severe, Anaphylaxis, 11/25/18) COVID-19 Screening Contact w/high risk pt: No Recent Travel to affected area: No Experienced COVID-19 symptoms?: No COVID-19 Testing performed [employer]: Yes COVID-19 Screening: Negative COVID-19 COVID-19 Testing Source: x2 Nursing Documentation-PMH Hx Cardiac Problems: No - HIV Hx Hypertension: No Hx Pacemaker: No Hx Asthma: No Hx COPD: No Hx Diabetes: No Hx Cancer: No Hx Gastrointestinal Problems: No Hx Dialysis: No Hx Neurological Problems: No - Hi five Hx Cerebrovascular Accident: No Hx Seizures: No Review of Systems All Other Systems: negative except mentioned in HPI Physical Exam Vital Signs Date Time Temp Pulse Resp B/P (MAP) Pulse Ox O2 Delivery O2 Flow Rate FiO2 08/10/20 01:00 98.2 71 18 155/94 (114) 99 Room Air General: Awake and alert, no acute distress HEENT: NC/AT. EOMI. Resp: Normal work of breathing Abdomen: Soft, nontender, nondistended. Rectal: Nonthrombosed external hemorrhoid 3 o'clock position. No mucoid drainage, no active bleeding Skin: Intact. No abrasions, laceration or rash over the exposed skin MSK: Normal tone and bulk. Moving all extremities. No obvious deformity. Neuro: Awake and alert. Mentating appropriately Medical Decision Making Diagnostic Impression: Primary Impression: Hemorrhoids ER Course 60-year-old male with history of hemorrhoid requiring banding presents for evaluation of painful hemorrhoid. I find a nonthrombosed hemorrhoid with no active bleeding. Does not require excision at this time. Patient will be discharged with stool softeners, topical pain relieving creams, sits baths and follow-up with general surgery. He is awaiting for referral for his PMD for surgeon. Discussed reasons to return to the ED. He understands and agrees with this treatment plan. Last Vital Signs Date Time Temp Pulse Resp B/P (MAP) Pulse Ox O2 Delivery O2 Flow Rate FiO2 08/10/20 01:00 98.2 71 18 155/94 (114) 99 Room Air Disposition: HOME, SELF-CARE Condition: Stable Scripts Ibuprofen* (MOTRIN*) 600 Mg Tablet 600 MG ORAL Q6H PRN for For Pain, #30 TAB 0 Refills Prov: Joel Matos MD 08/10/20 Docusate Sodium* (DOCUSATE SODIUM*) 100 Mg Capsule 100 MG ORAL THREE TIMES A DAY for 5 Days, #30 CAP Prov: Joel Matos MD 08/10/20 Lidocaine Hcl* (LIDOCAINE HCL*) 35.44 Gm Oint...g. 35.44 GM TP TID, #35 GM Prov: Joel Matos MD 08/10/20 Hydrocortisone Hc 2.5% Cream (ANUSOL-HC 2.5% CREAM) Y Cr 30 GM RC TID, #30 GM Prov: Joel Matos MD 08/10/20 Patient Instructions: Hemorrhoids Additional Instructions: Follow-up with general surgeon to discuss your hemorrhoids, possible excision or possible banding. Use the medications as prescribed. Return with new or worsening symptoms. Joel Matos MD Aug 10, 2020 02:29
[2020-08-10] MEDS ORDERED: HYDROcodone/Acetamin 7.5/325 tab ORAL ONE (02:30)
== END 2020-08-10 02:25 | disposition home or self-care (01) ==
LOC: EMR 01:19
DX: K64.9 Unspecified hemorrhoids (principal); Z21 Asymptomatic human immunodeficiency virus [HIV] infection status; Z88.8 Allergy status to other drugs, medicaments and biological substances
CPT/HCPCS: 99282

== ENCOUNTER 2020-08-14 20:04 | Emergency (ER) | payer MEDICAID ==
[~2020-08-14] VITALS: Ht 182.9 cm; Wt 81.6 kg
[~2020-08-14 20:04] MED LIST changes: +ANUSOL-HC30 GM RC; +DOCUSATE SODIU100 MG ORAL; +IBUPROFEN600 M1 ORAL; +LIDOCAINE HC35.44 GM TP
--- NOTE | 2020-08-14 20:15 | NUR ---
ED Nurse Note: Patient walked into ED for c/o anal and sacral level back pain x3 days. Patient believes he may have an infection, but denies any trauma or injury to the area. Patient is aaox4, breathing is normal and unlabored. No acute distress. RN bedside for rectal exam with ERMD.
[2020-08-14 20:20] VITALS: BP 140/71
--- NOTE | 2020-08-14 20:21 | Emergency Room Report ---
History of Present Illness General Chief Complaint: Back Pain-No Injury Source: Patient Present Illness HPI Is a 60-year-old male who presents after increased rectal pain. Patient states that he had recent increase in pain after anal sex. He reports having decreased ability to have a bowel movement. Denies any fever. Reports having some increased discomfort. Had noticed some increased low back pain as well. Prior history of HIV Allergies: Coded Allergies: ABACAVIR (Verified Allergy, Severe, Anaphylaxis, 11/25/18) COVID-19 Screening Contact w/high risk pt: No Recent Travel to affected area: No Experienced COVID-19 symptoms?: No COVID-19 Testing performed [employer] INST[employer]ER: No Patient History Past Medical History: see triage record Reviewed Nursing Documentation: PMH: Agreed; PSxH: Agreed Nursing Documentation-PMH Hx Cardiac Problems: No - HIV Hx Hypertension: No Hx Pacemaker: No Hx Asthma: No Hx COPD: No Hx Diabetes: No Hx Cancer: No Hx Gastrointestinal Problems: No Hx Dialysis: No Hx Neurological Problems: Yes - Hi5 Hx Cerebrovascular Accident: No Hx Seizures: No Review of Systems All Other Systems: negative except mentioned in HPI Physical Exam Vital Signs Date Time Temp Pulse Resp B/P (MAP) Pulse Ox O2 Delivery O2 Flow Rate FiO2 08/14/20 20:05 98.1 56 18 140/71 (94) 95 Room Air General Appearance: well appearing, no apparent distress, alert, GCS 15 Head: normocephalic, atraumatic ENT: hearing grossly normal, normal voice Neck: full range of motion, supple Respiratory: no respiratory distress, speaking full sentences Gastrointestinal: normal inspection, normal bowel sounds, non tender, soft Rectal: normal rectal tone, hemorrhoids, other - slight discharge Musculoskeletal: no calf tenderness Neurologic: alert, motor strength/tone normal, direct entry midwife III-XII nml as tested, normal gait Psychiatric: mood/affect normal Skin: no rash Medical Decision Making Diagnostic Impression: Primary Impression: Possible exposure to STD Additional Impressions: HIV (human immunodeficiency virus infection) Hemorrhoids ER Course Patient presented for possible STD exposure. Differential diagnosis include was not limited to abscess, proctitis, colitis among others. Because of complexity of patient's case laboratory tests and imaging studies were ordered. Last Vital Signs Date Time Temp Pulse Resp B/P (MAP) Pulse Ox O2 Delivery O2 Flow Rate FiO2 08/14/20 20:05 98.1 56 18 140/71 (94) 95 Room Air Status: unchanged Disposition: ADMITTED INPATIENT Condition: Stable Israel Olivarez MD Aug 14, 2020 20:21
[2020-08-14] MEDS ORDERED: COLACE100 MG ORAL (20:24)
[2020-08-14] MEDS ORDERED: DOXYCYCLINE MO100 MG ORAL (20:24)
[2020-08-14] MEDS ORDERED: Lidocaine 1% MPF 10mg/ml 5ml INJ ONE (20:30)
[2020-08-14 20:40] VITALS: BP 138/78
--- NOTE | 2020-08-14 20:40 | NUR ---
ER DISCHARGE NOTE: Patient is cleared to be discharged per ERMD, pt is aox4, on room air, with stable vital signs. pt was given dc and prescription instructions, pt was able to verbalize understanding, pt id band removed. pt is able to ambulate with steady gait. pt took all belongings.
== END 2020-08-14 20:40 | disposition other institution (70) ==
LOC: EMR 20:24
DX: K64.9 Unspecified hemorrhoids (principal); B20 Human immunodeficiency virus [HIV] disease; Z88.8 Allergy status to other drugs, medicaments and biological substances; M54.5 Low back pain
CPT/HCPCS: 96372; 96374; J0696; Z7502; 99284